=== PATIENT | female | born 1980 | race Caucasian/White ===

== ENCOUNTER 2019-02-18 18:03 | Emergency (ER) | payer SELFPAY ==
[2019-02-18 19:15] VITALS: BP 120/81; PULSE 73; RESP 16; TEMP 36.8; O2SAT 100; BMI 25.6
--- NOTE | 2019-02-18 20:08 | CTR_ITS ---
PROCEDURE INFORMATION: Exam: CT Head Without Contrast Exam date and time: 02/18/2019 8:21 PM Age: 39 years old Clinical indication: Injury or trauma; Injury history: Drywall fell on head TECHNIQUE: Imaging protocol: Computed tomography of the head without contrast. Total DLP: 746.07 mGy-cm Radiation optimization: All CT scans at this facility use at least one of these dose optimization techniques: automated exposure control; mA and/or kV adjustment per patient size (includes targeted exams where dose is matched to clinical indication); or iterative reconstruction. COMPARISON: CT head wo con* [id number] 07/22/2017 6:10 PM FINDINGS: Evaluation of the brain demonstrates no areas of abnormal density. Size of ventricular system appears within normal limits for the patient's stated age. No depressed calvarial fracture is demonstrated. Visualized paranasal sinuses and mastoid air cells demonstrate no significant opacification. CT/CT head wo con* [id number] IMPRESSION: No acute intracranial process is demonstrated. Radiation Dose CTDIVOL = (mGy): DLP = 746.07 (mGy-cm)
--- NOTE | 2019-02-18 20:08 | CTR_ITS ---
PROCEDURE INFORMATION: Exam: CT Cervical Spine Without Contrast Exam date and time: 02/18/2019 8:21 PM Age: 39 years old Clinical indication: Injury or trauma; Injury history: Drywall fell on head; Initial encounter; Blunt trauma TECHNIQUE: Imaging protocol: Computed tomography images of the cervical spine without contrast. Total DLP: 396.78 mGy-cm Radiation optimization: All CT scans at this facility use at least one of these dose optimization techniques: automated exposure control; mA and/or kV adjustment per patient size (includes targeted exams where dose is matched to clinical indication); or iterative reconstruction. COMPARISON: CT Cervical Spine wo* [id number] 10/16/2016 11:06 PM FINDINGS: Alignment of cervical bodies appears within normal limits. Height of cervical bodies appears within normal limits. Straightening of the cervical spine may be due to muscle spasm. There are moderate multilevel degenerative changes in the cervical spine. There appears to be spinal canal narrowing. Further assessment cannot be made of the cervical spinal canal or its contents due to artifacts. No convincing acute fracure is demonstrated when allowing for the degenerative changes. Consider MRI of cervical spine for further assessment if clinically warranted, particularly for further assessment of the spinal canal and its contents, spinal cord, nerve roots, intervertebral disks, ligaments, other spinal soft tissues, bone edema, etc., if patient has no contraindication to MRI. There is approximately 3 mm noncalcified nodule in right lung apex, partly demonstrated on prior study. CT/CT cervical spin wo con* [id number] IMPRESSION: No convincing acute fracture is demonstrated when allowing for moderate degenerative changes as discussed above. There is approximately 3 mm noncalcified nodule in right lung apex, partly demonstrated on prior study. Radiation Dose CTDIVOL = (mGy): DLP = 396.78 (mGy-cm)
--- NOTE | 2019-02-18 21:58 | ED_ITS ---
Entered by Tejal Chapman, acting as scribe for Sandip Rodriguez MD Feb 18, 2019 18:03 HPI - Head Injury General: Chief complaint: Head Injury Stated complaint: dry wall fell on head Time Seen by Provider: 02/18/19 21:58 Source: patient Mode of arrival: ambulatory Limitations: no limitations History of Present Illness: HPI Narrative: 39 y/o female presents to the ED with complaint of headache and neck pain post head injury. Pt states she was at work today when some drywall materials fell on her head. She had a nosebleed immediately afterwards, and denies LOC. Pt reports dizziness and nausea. MD Complaint: head injury and head pain Onset (ago): hour(s) Mechanism of Injury: work related injury Place: work Loss of Consciousness: no Severity: moderate Quality: throbbing Radiation: neck Associated symptoms: Reports nausea and neck pain; Deny vomiting Review of Systems Const: Denies: fever or chills Eyes: Reports: blurry vision ENMT: Denies: throat pain or mouth pain Card: Denies: chest pain Resp: Denies: shortness of breath GI: Reports: nausea; Denies: abdominal pain, vomiting or diarrhea : Denies: difficulty urinating Musc: Reports: neck pain; Denies: back pain or joint pain Skin/Breast: Denies: rash Neuro: Reports: headache and dizziness; Denies: behavioral changes Psych: Denies: depression Endo: Denies: excessive urination Gregory/Lymph: Denies: easy bruising All/Imm: Denies: hives PFSH ED PFSH: Statuses (acute, chronic, etc) shown below reflect problem list status as previously entered and may not be historically accurate Social History Smoking and tobacco status: never smoked Physical Exam Const: COMMON NORMALS: no apparent distress, oriented x3 and healthy appearing HENMT: COMMON NORMALS: normocephalic and external nose normal HEAD & SCALP: normocephalic NOSE: external nose normal Eye: COMMON NORMALS: PERRL PUPIL: Yes PERRL Neck/C-Spine: COMMON NORMALS: no lymphadenopathy CERVICAL SPINE: Yes pain with cervical ROM and Yes cervical spine tenderness Chest: COMMONS NORMALS: inspection of chest normal Resp: COMMON NORMALS: normal respiratory effort, no use of accessory muscles and clear to auscultation bilaterally AUSCULTATION: clear to auscultation bilaterally Cardio: COMMON NORMALS: regular rate and regular rhythm RATE: regular rate RHYTHM: regular rhythm GI: COMMON NORMALS: normal to inspection, nondistended, normoactive bowel sounds, soft to palpation, non-tender and no masses PALPATION: Yes soft Back/Pelvis: THORACIC SPINE/UPPER BACK: Yes normal to inspection Extremity: COMMON NORMALS: normal to inspection, full ROM and normal capillary refill Neuro: COMMON NORMALS: oriented x3 Psych: COMMON NORMALS: mental status grossly normal and cooperative Skin: COMMON NORMALS: no rashes or lesions noted GENERAL SKIN EXAM: no rashes or lesions noted Course Vital Signs: Vital signs: Vital Signs Temperature 98.3 F 02/18/19 19:15 Pulse Rate 73 02/18/19 19:15 Respiratory Rate 16 02/18/19 19:15 Blood Pressure 120/81 02/18/19 19:15 Pulse Oximetry 100 02/18/19 19:15 MDM - Head Injury MDM Narrative: Medical decision making narrative: Patient presents here after a closed head injury. She has some neck pain that is likely muscular. CTs here are negative. Did inform her of the incidental lung finding and informed her she needs a repeat x-ray outpatient. Patient is stable for discharge will prescribe Naprosyn and Robaxin. Imaging Data^: CT Head: Radiologist's impression: Ordering Physician: Sandip Rodriguez MD Date of Service: 02/18/19 Procedure(s): CT head wo con* [id number] Accession Number(s): [id number] cc: Sandip Rodriguez MD PROCEDURE INFORMATION: Exam: CT Head Without Contrast Exam date and time: 02/18/2019 8:21 PM Age: 39 years old Clinical indication: Injury or trauma; Injury history: Drywall fell on head TECHNIQUE: Imaging protocol: Computed tomography of the head without contrast. Total DLP: 746.07 mGy-cm Radiation optimization: All CT scans at this facility use at least one of these dose optimization techniques: automated exposure control; mA and/or kV adjustment per patient size (includes targeted exams where dose is matched to clinical indication); or iterative reconstruction. COMPARISON: CT head wo con* [id number] 07/22/2017 6:10 PM FINDINGS: Evaluation of the brain demonstrates no areas of abnormal density. Size of ventricular system appears within normal limits for the patient's stated age. No depressed calvarial fracture is demonstrated. Visualized paranasal sinuses and mastoid air cells demonstrate no significant opacification. CT/CT head wo con* [id number] IMPRESSION: No acute intracranial process is demonstrated. ct cspine: Radiologist's impression: PROCEDURE INFORMATION: Exam: CT Cervical Spine Without Contrast Exam date and time: 02/18/2019 8:21 PM Age: 39 years old Clinical indication: Injury or trauma; Injury history: Drywall fell on head; Initial encounter; Blunt trauma TECHNIQUE: Imaging protocol: Computed tomography images of the cervical spine without contrast. Total DLP: 396.78 mGy-cm Radiation optimization: All CT scans at this facility use at least one of these dose optimization techniques: automated exposure control; mA and/or kV adjustment per patient size (includes targeted exams where dose is matched to clinical indication); or iterative reconstruction. COMPARISON: CT Cervical Spine wo* [id number] 10/16/2016 11:06 PM FINDINGS: Alignment of cervical bodies appears within normal limits. Height of cervical bodies appears within normal limits. Straightening of the cervical spine may be due to muscle spasm. There are moderate multilevel degenerative changes in the cervical spine. There appears to be spinal canal narrowing. Further assessment cannot be made of the cervical spinal canal or its contents due to artifacts. No convincing acute fracure is demonstrated when allowing for the degenerative changes. Consider MRI of cervical spine for further assessment if clinically warranted, particularly for further assessment of the spinal canal and its contents, spinal cord, nerve roots, intervertebral disks, ligaments, other spinal soft tissues, bone edema, etc., if patient has no contraindication to MRI. There is approximately 3 mm noncalcified nodule in right lung apex, partly demonstrated on prior study. CT/CT cervical spin wo con* [id number] IMPRESSION: No convincing acute fracture is demonstrated when allowing for moderate degenerative changes as discussed above. There is approximately 3 mm noncalcified nodule in right lung apex, partly demonstrated on prior study. Discharge Plan Discharge Patient Disposition: Home, Self-Care Clinical Impression: Closed head injury Qualifiers: Encounter type: initial encounter Qualified Code(s): S09.90XA - Unspecified injury of head, initial encounter Condition: Stable Prescriptions: New Robaxin-750 750 mg tablet 750 mg PO Q6H Qty: 30 RF: 0 EC-Naprosyn 500 mg tablet,delayed release (DR/EC) 500 mg PO BID PRN (Reason: pain) Qty: 20 RF: 0 Discharge Orders: Discharge Order (Routine); Ordered 02/18/19 Ordered By: Sandip Rodriguez Referrals: Alexa Mueller MD [Primary Care Provider] - 4-7 days Discharge Diet: Advance as tolerated Discharge Activity: Resume usual activity Patient Instructions: Concussion/Head Injury - Adult Coding Level of Care Code ED Foreign Collection Clerk for Chg Fwd Exam Problem Focused The documentation recorded by the Ari olivas Ashley, accurately reflects the service I personally performed and the decisions made by Michael cade Korby, MD Feb 18, 2019 18:03
--- NOTE | 2019-02-18 22:11 | PC.NURSE ---
refused pain med naproxen reports drywall falling from ceiling at work. fell directly ontop of head around 1100 today took some tylenol but didnt help. now presents with headache radiating down neck and rt ear.
[2019-02-18 22:17] VITALS: BP 114/79; PULSE 70; RESP 20; TEMP 36.6; O2SAT 99
== END 2019-02-18 22:18 | disposition home or self-care (01) ==
PROVIDERS: Emergency Provider Emergency Medicine; Family Provider Family Medicine; PCP Family Medicine
DX: S09.8XXA Other specified injuries of head, initial encounter (principal); W20.8XXA Other cause of strike by thrown, projected or falling object, initial encounter; Y99.0 Civilian activity done for income or pay
CPT/HCPCS: 70450; 72125; 99281

== ENCOUNTER 2019-03-06 11:23 | Outpatient (CLI) | payer SELFPAY ==
--- NOTE | 2019-03-06 11:26 | MR_ITS ---
WS: [id number] MRI CERVICAL SPINE HISTORY: CHRONIC NECK PAIN;UNSPEC INJURY OF HEAD COMPARISON: CT cervical spine 02/18/2019 Mild straightening and slight reversal normal cervical alignment centered at C4-5. No marrow edema. Signal within the cervical cord is normal. Visualized posterior fossa is unremarkable. Craniocervical junction, C1 and C2 relationship, odontoid process and soft tissues are normal. C2-C3: Normal. C3-C4: Normal. C4-C5: Small central disc protrusion. There are also small bilateral foraminal osteophytes. Osteophyt es extend posteriorly towards the LEFT foramen by 5 mm. There is mild bilateral foraminal narrowing p redominantly due to osteophyte disease. C5-C6: Bilateral, paracentral disc osteophyte complexes. RIGHT disc osteophyte complex is slightly gr eater than the LEFT. Effacement of CSF and mild disc osteophyte contact on the RIGHT lateral cord. Di sc osteophyte disease is resulting in mild central and bilateral foraminal stenosis. Slightly greater stenosis on the RIGHT. C6-C7: Normal. C7-T1: Normal. Paraspinal soft tissue are normal. MR/MR cervical spin wo con* [id number] IMPRESSION: 1. No cervical spine fracture. 2. Disc osteophyte complexes at C4-5 and C5-6. 3. Bilateral, paracentral disc osteophyte complexes at C5-6. The RIGHT disc os teophyte causing complete effacement of CSF with mild cord contact. 4. Mild central and bilateral foraminal stenosis at C5-6. 5. Mild foraminal stenosis at C4-5 due to disc osteophyte disease.
== END 2019-03-06 11:24 | disposition home or self-care (01) ==
LOC: RADSHAW 11:23
PROVIDERS: Family Provider Family Medicine; PCP Family Medicine; Visit Provider Family Medicine
DX: M54.2 Cervicalgia (principal); S09.90XD Unspecified injury of head, subsequent encounter; X58.XXXD Exposure to other specified factors, subsequent encounter; M25.78 Osteophyte, vertebrae; M48.02 Spinal stenosis, cervical region
CPT/HCPCS: 72141

== ENCOUNTER 2019-03-06 12:43 | Outpatient (CLI) | payer SELFPAY ==
--- NOTE | 2019-03-06 13:05 | CT_ITS ---
WS: [id number] CT CHEST TECHNIQUE: Contrast enhanced CT of the chest with coronal and sagittal reformatted images. CLINICAL INFORMATION: MULTIPLE NODULES OF LUNG COMPARISON: None. DLP: 527.[address] scans at [facility] use at least one of these dose optimization techniques: automat ed exposure control; mA and/or kV adjustment per patient size (includes targeted exams where dose is matched to clinical indication); or iterative reconstruction. FINDINGS: Both lungs are well aerated. No acute pulmonary infiltrates. No consolidation or pleural fluid. Sever al small hazy groundglass noncalcified nodules in the right upper and right lower lobe laterally the largest in the right upper lobe measuring 5 mm and lower lobe measuring 4 mm. These are nonspecific a nd may be inflammatory. Recommend 3-6 month follow-up. 2 or 3 additional hazy similar appearing left-sided nodules in the left upper lobe and left lower lob e. Small amount of subpleural nodularity left lower lobe. Mild chronic emphysematous changes. Slight fibrosis in the lung apices. Thyroid gland is normal. No m ediastinal or hilar lymphadenopathy. Proximal pulmonary arteries appear normal. Normal caliber thorac ic aorta. No axillary lymphadenopathy. Adrenal glands are normal. CT/CT chest w con* [id number] IMPRESSION: 1. Mild chronic emphysematous changes. No acute pulmonary infiltrates. 2. A few subcentimeter hazy noncalcified nodules more prominent in the right u pper lobe and right lower lobe described above. These may be inflammatory. Reji mmend 6 month follow-up. 3. No mediastinal or hilar lymphadenopathy. 4. No other significant findings.
[2019-03-06] MEDS: iohexol 300 mg/mL 100 mL Btl IV (13:43)
== END 2019-03-06 12:44 | disposition home or self-care (01) ==
LOC: RADWPI 12:47
PROVIDERS: Family Provider Family Medicine; PCP Family Medicine; Visit Provider Family Medicine
DX: J43.9 Emphysema, unspecified (principal); R91.8 Other nonspecific abnormal finding of lung field
CPT/HCPCS: 71260; Q9967

== ENCOUNTER 2019-03-31 14:45 | Outpatient (CLI) | payer SELFPAY ==
[2019-03-31 15:12] LABS: Basophils % 0.7 %; Eosinophils # 0.4 10^3/uL (0.0-0.8); Eosinophils % 6.8 %; Hematocrit 38.9 % (37.0-47.0); Hemoglobin 13.1 g/dL (11.5-15.3); Lymphocytes # 1.5 10^3/uL (0.8-4.8); Lymphocytes % 24.1 %; Mean Corpuscular HGB Conc 33.7 g/dL (30.0-36.0); Mean Corpuscular Hemoglobin 30.8 pg (28.0-34.0); Mean Corpuscular Volume 91.3 fL (81-99); Mean Platelet Volume 9.5 fL (7.4-10.4); Monocytes # 0.5 10^3/uL (0.2-0.9); Monocytes % 7.4 %; Neutrophils # 3.7 10^3/uL (1.8-7.7); Neutrophils % 60.7 %; Nucleated Red Blood Cells % 0 %; Platelet Count 358 10^3/cmm (130-400); Red Blood Count 4.26 10^6/uL (4.1-5.3); Red Cell Distribution Width 11.3 % (12.1-15.1); White Blood Count 6.1 10^3/uL (4.0-10.0)
[2019-03-31 15:52] LABS: 25 Hydroxy Vitamin D 51 ng/mL (30-100)
[2019-03-31 18:58] LABS: Calcium 9.9 mg/dL (8.5-10.5); Parathyroid Hormone 35.3 pg/mL (15-65)
[2019-04-01 11:18] LABS: Angiotensin Converting Enzyme 35 U/L (9-67)
[2019-04-02 14:11] LABS: Quantiferon Mitogen 7.77 IU/mL; Quantiferon Nil 0.03 IU/mL; Quantiferon Plus TB1 0.01 IU/mL; Quantiferon Plus TB2 0.02 IU/mL; Quantiferon TB Gold NEGATIVE (NEGATIVE)
[2019-04-04 18:16] LABS: Vit D 1,25 (Oh)2, Total 61 pg/mL (18-72); Vit D2 1,25 (Oh)2 <8 pg/mL; Vit D3 1,25 (Oh)2 61 pg/mL
== END 2019-03-31 14:46 | disposition home or self-care (01) ==
LOC: LAB 14:48
PROVIDERS: Family Provider Family Medicine; PCP Family Medicine; Visit Provider Internal Medicine Critical Care Medicine
DX: Z01.812 Encounter for preprocedural laboratory examination (principal); D86.9 Sarcoidosis, unspecified; R59.0 Localized enlarged lymph nodes
CPT/HCPCS: 82164; 82306; 82310; 82652; 83970; 85025; 86480

== ENCOUNTER 2019-04-10 05:54 | Day surgery (SDC) | payer SELFPAY ==
[2019-04-10] VITALS (8 sets, daily range): BP systolic 105–114; BP diastolic 55–76; PULSE 79–119; RESP 16–22; TEMP 36.6–37.5; O2SAT 96–99
--- NOTE | 2019-04-10 06:25 | ANES.PREANE2 ---
Pre-Anesthetic Assessment Pre-Anesthetic Assessment: Height/Weight: Height 1.65 m Weight 54.431 kg Temp Pulse Resp BP Pulse Ox 98.1 F 79 18 109/71 99 04/10/19 06:06 04/10/19 06:06 04/10/19 06:06 04/10/19 06:06 04/10/19 06:06 Preop Diagnosis: Sarcoidosis Proposed Procedure: Operation Date: 04/10/19 07:00 Proposed Procedures p Ebus 80076 56848 R91.1(Not Applicable) - Biplab MD Az Last intake: Intake Last Liquid Date 04/09/19 Last Liquid Time 21:30 Last Solid Date 04/09/19 Last Solid Time 20:30 Exam: Pre-Anes Outpt Exam: alert, oriented x 3, clear to auscultation bilaterally and regular rate & rhythm Airway: Submandibular: WNL Cervical ROM: WNL MP: 1 Additional comments: malocculsion Pulmonary: Comments: pulmonary nodule Anesthetic Plan: ASA status: 2 Anesthesia: General PFS Anesthesia PFSH: Social History Smoking and tobacco status: never smoked Alcohol intake: never Lives independently: Yes 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: employed Current occupational exposures/hazards: No History of recent travel: No Current gender identity: Female Data Anesthesia Cardiac Studies: No Data to Display
[2019-04-10] MEDS: sodium chloride 0.9% 1,000 ML 30 ML IV (06:34)
--- NOTE | 2019-04-10 06:48 | W.PM.OPSUD ---
Surgery/Procedure H&P Update DATE OF PROCEDURE: April 10, 2019 DATE H&P PERFORMED: 03/31/19 H&P UPDATE INFORMATION: I have reviewed H&P completed within last 30 days, I have examined patient prior to procedure and No changes to prior documentation CHANGES TO PREVIOUS DOCUMENTATION: There is no change in her clinical status since she was last seen in the office. PREOP DIAGNOSIS: Sarcoidosis PRIMARY INDICATION FOR PROCEDURE: The patient is here for evaluation of pulmonary nodule with mediastinal hilar lymphadenopathy. PLANNED PROCEDURE: Bronchoscopy with airway inspection, possible endobronchial and transbronchial biopsies, endobronchial ultrasound-guided transbronchial needle aspiration of lymph nodes. Operation Date: 04/10/19 07:00 Proposed Procedures p Ebus [id number] R91.1(Not Applicable) - Yadiel Bernardo MD
[2019-04-10 07:13] LABS: Total Volume Urine 1450 ml
[2019-04-10 07:14] LABS: Calcium 24 Hour Urine 251 mg/24hr (100-300); Urine Calcium Result 17.3 mg/dL
[2019-04-10] MEDS: lidocaine 1% INJ 20 mL XX (07:20)
--- NOTE | 2019-04-10 08:15 | P.OP_ITS ---
Operative Report Date of procedure: April 10, 2019 Pre-op Diagnosis: Sarcoidosis Brief History: This is a 39-year-old female who presents to the office with bilateral small pulmonary nodule in the perilymphatic distribution as well as medicine hilar lymphadenopathy. The patient is here to undergo bronchoscopic evaluation and endobronchial ultrasound-guided transbronchial needle aspiration of lymph nodes. Procedure: Name of the procedure: Bronchoscopy with inspection of the airway, bronchoalveolar lavage, endobronchial biopsies, endobronchial ultrasound-guided transbronchial needle aspiration of lymph nodes and control of bleeding. Indication: Pulmonary nodule in perilymphatic distribution and hilar and mediastinal lymphadenopathy. Anesthesia: General anesthesia. Local anesthesia: The margaret in the right and left mainstem bronchi were anesthetized with 1% lidocaine, 3 mL. Description of the procedure: The procedure was explained to the patient and the consent was obtained. The patient was brought to the OR. The patient underwent endotracheal intubation for general anesthesia. Following induction of general anesthesia, the bronchoscope was advanced through the ET tube. The lower trachea appeared to be mildly erythematous with prominent blood vessels, no endotracheal lesion was seen. The margaret was sharp. The margaret, the right and left mainstem bronchi are anesthetized with 1% lidocaine. In a systematic manner bilateral bronchial tree was then examined. The bronchoscope was advanced into the left mainstem bronchus. There was no significant erythema or mucus. But areas of cobblestoning was noted on bilateral airways. The left upper lobe, lingula and left lower lobe bronchi were examined up to the third subsegmental level and no abnormalities were identified. There is no e ndobronchial lesion, active bleeding or mucous plug. The bronchoscope was then introduced into the right mainstem bronchus. The right upper lobe, right middle lobe and right lower lobe bronchi were examined up to the third subsegmental level and no abnormalities were identified. There was mild airway erythema throughout the lung. Bronchoalveolar lavage was performed from the medial segment of the right middle lobe. 60 mL of saline was instilled, fluid return was 15 mL. The fluid was cloudy. Endobronchial biopsies were performed from the right mainstem bronchus from an area of cobblestoning. 3 specimens were obtained. The endobronchial ultrasound was introduced through the ET tube. Mediastinal and hilar lymphadenopathy was identified with the ultrasound. The lymph nodes showed distinct cortex and Medela. Transbronchial needle aspiration was performed from 4R, 7, 10 R lymph nodes. The bronchoscope was then reintroduced to check for bleeding. No significant active bleeding was noted. Samples: 1. Bronchoalveolar lavage specimen was sent for cell count and differential, CD4 CD8 ratio, Gram stain and culture, fungal stain and culture, AFB stain and culture. 2. The endobronchial biopsies are sent for histopathology. 3. The transbronchial needle aspiration of the aforementioned lymph node groups were sent for cytology. Complications: There was no immediate complications. The patient was extubated and brought to the PACU in stable condition.
[2019-04-10] MEDS: ondansetron 2 mg/ML SDV 2 mL 4 MG IVP (08:31)
--- NOTE | 2019-04-10 09:20 | SUR.OPER ---
balloon removed intact.
[2019-04-10 18:12] LABS: Bronch Source Right Middle Lobe
[2019-04-10 22:05] LABS: Apprearance, Bronch Wash Hazy (CLEAR)
[2019-04-10 22:06] LABS: Color, Bronc Wash Colorless
[2019-04-10 22:11] LABS: PATH Referral Yes; Total Cells Counted Bronch 18
[2019-04-14 13:32] LABS: Miscellaneous Test See Scanned Lab Rpt
== END 2019-04-10 09:26 ==
PROVIDERS: Family Provider Family Medicine; PCP Family Medicine; Visit Provider Internal Medicine Critical Care Medicine
PROC: BB4BZZZ Ultrasonography of Pleura (ICD-10-PCS; CPT 31624; principal; 2019-04-10 07:00)
DX: D86.9 Sarcoidosis, unspecified (principal)
CPT/HCPCS: 31624; 31625; 31645; 12345; 80500; 82340; 86355; 86357; 86359; 86360; 87015; 87070; 87102; 87116; 87205; 87206; 87801; 88112; 88305; 89050; J1100; J2001; J2405; J2710; J3010; J3490; J7030

== ENCOUNTER 2019-04-13 14:11 | Outpatient (CLI) | payer SELFPAY ==
--- NOTE | 2019-04-13 14:17 | XR_ITS ---
WS: [id number] LATERAL CERVICAL SPINE: 3 view. Lateral radiographs are performed in upright neutral, flexion and extension to the patient's toleranc e. HISTORY: Neck pain COMPARISON: 07/22/2017 Straightening of the normal cervical lordosis. Disc spaces and vertebral body heights are maintained. With flexion and extension no instability. XR/XR cervical spine fl/ex [id number] IMPRESSION: Straightening of the normal cervical lordosis. No instability.
== END 2019-04-13 14:12 | disposition home or self-care (01) ==
LOC: RADWPI 14:13
PROVIDERS: Family Provider Family Medicine; PCP Family Medicine; Visit Provider Licensed Practical Nurse
DX: M50.020 Cervical disc disorder with myelopathy, mid-cervical region, unspecified level (principal); M54.2 Cervicalgia
CPT/HCPCS: 72040

== ENCOUNTER → 2019-04-16 10:30 | Outpatient (BNVA) | payer SELFPAY | PROVIDERS: Family Provider Family Medicine; PCP Family Medicine; Referring Provider Licensed Practical Nurse; Visit Provider Anesthesiology Pain Medicine | DX: M50.00 Cervical disc disorder with myelopathy, unspecified cervical region (principal); Z79.891 Long term (current) use of opiate analgesic | CPT/HCPCS: 99203; 99999 ==

== ENCOUNTER → 2019-04-21 15:17 | Outpatient (BNVA) | payer SELFPAY | PROVIDERS: Family Provider Family Medicine; PCP Family Medicine; Visit Provider Otolaryngology | DX: H92.11 Otorrhea, right ear (principal); J33.9 Nasal polyp, unspecified | CPT/HCPCS: 92511; 99214 ==

== ENCOUNTER 2019-04-27 08:53 | Outpatient (CLI) | payer SELFPAY ==
--- NOTE | 2019-04-27 08:45 | CT_ITS ---
WS: [id number] CT TEMPORAL BONES TECHNIQUE: Noncontrast CT of the temporal bones with coronal and sagittal reformatted images. CLINICAL INFORMATION: Otorrhea, right ear COMPARISON: Multiple prior head CTs dating back to 2011. DLP: 631.[address] scans at [facility] use at least one of these dose optimization techniques: automat ed exposure control; mA and/or kV adjustment per patient size (includes targeted exams where dose is matched to clinical indication); or iterative reconstruction. FINDINGS: Partially visualized paranasal sinuses appear well aerated. RIGHT: Mastoid air cells are well aerated. Prominent aditus ad antrum. Slight Cerumen external auditory taiwo l. Ossicles are normal in appearance. Middle ear is well aerated. Thickening of the tympanic membrane . Normal tegmen tympani. Semicircular canals and cochlea are normal in appearance. Prussak's space is normal. Normal inner ear structures. Normal vestibular aqueduct. Facial nerve recess is normal. LEFT: Mastoid air cells well aerated. Prominent cerumen in the external auditory canal. Normal tympanic mem brane. Prominent aditus ad antrum with prior evidence of partial canal wall up mastoidectomy/partial mastoid resection. Ossicles are normal in appearance. Middle ear is well aerated. Normal tegmen tympani. Semicircular c anals and cochlea are normal in appearance. Prussak's space is normal. Normal inner ear structures. N ormal vestibular aqueduct. Facial nerve recess is normal.. CT/CT temporal bone wo con* [id number] IMPRESSION: 1. Mastoid air cells well aerated bilaterally. 2. Prominent aditus ad antrum bilaterally symmetric in appearance with evidenc e of prior partial left canal wall up mastoidectomy. If no history of surgery, this could be due to prior history of coalescent mastoiditis. 3. Mild thickening of the right tympanic membrane pedicle. Middle ears are wel l aerated bilaterally. 4. Prominent cerumen in the left external auditory canal.
== END 2019-04-27 08:54 | disposition home or self-care (01) ==
LOC: RADWPI 08:57
PROVIDERS: Family Provider Family Medicine; PCP Family Medicine; Visit Provider Otolaryngology
DX: H92.11 Otorrhea, right ear (principal); H61.22 Impacted cerumen, left ear
CPT/HCPCS: 70480

== ENCOUNTER 2019-04-28 14:13 | Outpatient (RCR) | payer SELFPAY | END 2019-05-12 23:59 | disposition home or self-care (01) | LOC: SPT 14:13 | PROVIDERS: Family Provider Family Medicine; PCP Family Medicine; Referring Provider Licensed Practical Nurse; Visit Provider Licensed Practical Nurse | DX: M50.020 Cervical disc disorder with myelopathy, mid-cervical region, unspecified level (principal) | CPT/HCPCS: 97110; 97162 ==

== ENCOUNTER → 2019-05-14 10:21 | Outpatient (BNVA) | payer SELFPAY | PROVIDERS: Family Provider Family Medicine; PCP Family Medicine; Visit Provider Anesthesiology Pain Medicine | DX: M50.00 Cervical disc disorder with myelopathy, unspecified cervical region (principal) | CPT/HCPCS: 99213 ==

== ENCOUNTER 2019-06-18 10:33 | Outpatient (CLI) | payer SELFPAY ==
--- NOTE | 2019-06-18 10:38 | MM_ITS ---
WS: [id number] BILATERAL SCREENING DIGITAL MAMMOGRAM WITH CAD HISTORY: Screening exam. COMPARISON: 02/18/2017 and 01/11/2016 Bilateral CC and MLO views submitted. Computer aided detection analyzed. Breast composition: The breasts are extremely dense, which lowers the sensitivity of mammography. No suspicious masses, microcalcifications or architectural distortion. Clusters of calcifications bilate rally are stable. Suspect some of these are probably milk of calcium as there indistinct and hazy on the craniocaudad and layering on the lateral projection. MM/[place] [id number] IMPRESSION: BI-RADS: 2-Benign FOLLOW UP: 1 Year Follow-up
== END 2019-06-18 10:34 | disposition home or self-care (01) ==
PROVIDERS: Family Provider Family Medicine; PCP Family Medicine; Visit Provider Family Medicine
DX: Z12.31 Encounter for screening mammogram for malignant neoplasm of breast (principal)
CPT/HCPCS: 77067

== ENCOUNTER 2020-04-28 10:01 | Emergency (ER) | payer SELFPAY ==
[2020-04-28 10:09] VITALS: BP 111/65; PULSE 80; RESP 17; O2SAT 99; BMI 21.2
[2020-04-28 10:17] VITALS: BP 111/81; PULSE 76; RESP 20; O2SAT 97
--- NOTE | 2020-04-28 10:48 | ECG_ITS ---
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 Measurements Intervals [place] Rate: 80 P: 61 WA: 154 QRS: 98 QRSD: 93 T: 55 QT: 357 QTc: 414 Interpretive Statements SINUS RHYTHM BORDERLINE RIGHT AXIS DEVIATION [QRS AXIS > 90] INCOMPLETE RIGHT BUNDLE BRANCH BLOCK [90+ ms QRS DURATION, TERMINAL R IN V1/V2, 40+ ms S IN I/aVL/V4/V5/V6] WARNING: DATA QUALITY MAY AFFECT INTERPRETATION Compared to ECG 10/08/2017 14:04:21 No significant changes Electronically Signed On 04-29-2020 22:55:51 CDT by Radha Flynn M.D. [email or web address]
--- NOTE | 2020-04-28 10:48 | XR_ITS ---
WS: [id number] XR chest 1V portable [id number] REASON FOR EXAM: Chest pain FINDINGS: The chest is unchanged compared to previous examination 03/08/2017. The heart and mediastinum are within normal limits. Changes of calcified granulomatous disease in both hemithoraces. No active pulmonary parenchymal or p leural disease. Accentuation of lower lung field markings is likely due to mild pectus deformity demo nstrated on previous PA and lateral chest. No significant abnormality of the bony thorax. XR/XR chest 1V portable [id number] IMPRESSION: No acute chest abnormality.
--- NOTE | 2020-04-28 12:08 | W.ED.CHESTPA ---
HPI - Chest Pain General: Chief Complaint: Chest Pain Stated Complaint: CHEST PAIN/NUMBNESS IN L ARM Time Seen by Provider: 04/28/20 10:41 Source: patient Mode of arrival: ambulatory Limitations: no limitations History of Present Illness: MD complaint: chest pain Pain location: left chest Pain radiation: left arm and left shoulder Quality: aching Relieving factors: nothing Exacerbating factors: palpation and movement Associated symptoms: Deny abdominal pain, dyspnea, fever(s), nausea, palpitations or syncope Review of Systems General: Reports: 10 or more systems reviewed and unremarkable except in HPI and below Const: Denies: fever(s) or chills Eyes: Denies: change in vision or blurry vision ENMT: Denies: throat pain, odynophagia or sinus pain Card: Reports: chest pain; Denies: palpitations, irregular heart rhythm, swelling of feet/ankles, lightheadedness, syncope, dyspnea on exertion or orthopnea Resp: Denies: dyspnea, productive cough, non-productive cough, wheezing, stridor, pain on inspiration or chest congestion GI: Denies: abdominal pain, nausea or vomiting : Denies: difficulty voiding or dysuria Musc: Reports: extremity pain, joint pain, joint stiffness, limited range of motion and muscle cramps Skin/Breast: Denies: rash, pruritus or erythema Neuro: Reports: numbness in extremities; Denies: headache(s) or weakness in extremities Psych: Denies: anxiety, depression or mood swings Gregory/Lymph: Denies: easy bruising PFSH ED PFSH: Medical History Cervical disc disorder with myelopathy of mid-cervical region Cervical stenosis of spinal canal Lung nodule Nasal polyp Otorrhea, right ear Ovarian cyst Surgical History History of appendectomy History of hysterectomy Family History Mother Heart disease Diabetes Breast cancer Father Stroke Hypertension Hypercholesteremia Diabetes Asthma Social History Smoking and tobacco status: never smoked Alcohol intake: never Household members: spouse and children Marital status: 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: employed Current occupation: [employer] History of recent travel: No Physical Exam Const: COMMON NORMALS: no acute distress, average body habitus, patient oriented x3, no limitations, healthy appearing, alert and well nourished GENERAL APPEARANCE: comfortable and well kempt; not in distress and not ill appearing HENMT: COMMON NORMALS: normocephalic and atraumatic HEAD & SCALP: normocephalic and atraumatic FACE & SINUS: normal facial exam and face symmetric Eye: COMMON NORMALS: Equal, round and reactive pupils present, EOMs intact bilaterally, conjunctivae normal and no scleral icterus CONJUNCTIVA: Yes conjunctivae normal PUPIL: Yes Equal, round and reactive pupils present Neck/C-Spine: COMMON NORMALS: full ROM, no lymphadenopathy, supple and no JVD Lymph: LYMPHATIC: no lymphadenopathy noted Chest: BREAST/AXILLA PALPATION: Yes abnormal palpation of the axilla and Yes abnormal palpation of the breast (Pectoralis major tendon) left upper outer Breast palpation abnormal details: tenderness, mass, induration, glandular prominence, fibrous tissue prominence, fibrocystic changes and other (Pain on palpation of tendon) Chest images (female): 1. Tender to palpation Resp: COMMON NORMALS: normal respiratory effort, No use of accessory muscles and clear to auscultation bilaterally EFFORT & INSPECTION: Yes able to speak in complete sentences AUSCULTATION: clear to auscultation bilaterally Cardio: COMMON NORMALS: no JVD, regular rate, regular rhythm, S1 normal heart sound present and S2 normal heart sound present RATE: regular rate RHYTHM: regular rhythm HEART SOUNDS: S1 normal heart sound present and S2 normal heart sound present GI: COMMON NORMALS: Normal to inspection, nondistended, normoactive bowel sounds present, Soft to palpation and non-tender PALPATION: Yes Soft to palpation Extremity: GENERAL: Yes normal exam except as noted Neuro: COMMON NORMALS: patient oriented x3 Psych: COMMON NORMALS: mental status grossly normal and Normal thought process present APPEARANCE: Yes well kempt THOUGHT PROCESS: Normal thought process present Skin: COMMON NORMALS: no rashes or lesions noted, no wounds, turgor normal, no jaundice and no petechiae GENERAL SKIN EXAM: no rashes or lesions noted and turgor normal Course Vital Signs: Vital signs: Vital Signs Pulse Rate 76 04/28/20 10:17 Respiratory Rate 20 H 04/28/20 10:17 Blood Pressure 111/81 04/28/20 10:17 Pulse Oximetry 97 04/28/20 10:17 MDM - Chest Pain MDM Narrative: Medical decision making narrative: 40-year-old female with left chest wall pain since this morning. Last night she noticed some upper shoulder and neck pain. Her pain is worse with deep breathing, palpation, and adduction of her left shoulder. No palpitations, no shortness of breath, she has some pain radiating down the upper part of her left arm with tingling. No weakness. Denies any recent injury or strenuous activity, although she says that she has been deep cleaning her house. No history of heart or lung problems. No recent cough or congestion. No fever. Chest x-ray does not show any acute infiltrates, pneumothorax, effusions, or consolidations. EKG; normal sinus rhythm, rate 80, SC 154, QRS 93, QT 393. Borderline right axis deviation, no ST segment elevation or depression. No ectopy. The patient's pain is easily recreated with movement and palpation of the pectoralis major tendon on the left. She is not having any respiratory symptoms, no tachycardia, dyspnea, or hypoxia to raise suspicion for PE. The characteristics of her pain are not consistent with cardiac etiology. No further work-up needed at this time. I will recommend warm compresses, massage, stretching, and follow-up with PCP in the next 2 to 3 days to review her preventative care and make sure she is up-to-date with her mammogram. Differential Diagnosis: Cardiac arrest differential diagnosis: Likely acute massive pulmonary embolism, acute respiratory failure and acute myocardial infarction Medical Records: Attestation: I reviewed the patient's medical records. Discharge Plan Discharge Patient Disposition: Home Clinical Impression: Anterior chest wall pain Pectoralis major tendinitis Qualifiers: Laterality: left Qualified Code(s): M75.82 - Other shoulder lesions, left shoulder Condition: Stable Prescriptions: No Action No Known Home Medications RF: 0 Discharge Orders: Discharge ED (Routine); Ordered 04/28/20 Ordered By: Maribel Black Referrals: Elizabeth Lucero FNP [Primary Care Provider] - Discharge Diet: Advance as tolerated Discharge Activity: Resume usual activity Patient Instructions: Chest Pain - Chest Wall Activity Restrictions/Additional Instructions: Call to schedule follow-up appointment with your primary care doctor in the next 2 to 3 days. Apply heat, massage, do frequent stretches and therapeutic exercises. You can take [id number] Tylenol or ibuprofen for pain. Return immediately to the ER if you develop worsening pain, difficulty breathing, fever, worsening weakness or numbness in your left arm, or any other concerning changes. Coding Level of Care Code ED Music Library Assistant for Fredrick Gonsalez
[2020-04-28 12:17] VITALS: BP 112/62; PULSE 82; RESP 17; O2SAT 94
== END 2020-04-28 12:18 | disposition home or self-care (01) ==
PROVIDERS: Emergency Provider Family Medicine; PCP Nurse Practitioner Family
DX: R07.89 Other chest pain (principal); M75.82 Other shoulder lesions, left shoulder
CPT/HCPCS: 71045; 93005; 99283

== ENCOUNTER → 2020-09-19 14:12 | Outpatient (BNVA) | payer SELFPAY | PROVIDERS: PCP Nurse Practitioner Family; Visit Provider Specialist | DX: M50.020 Cervical disc disorder with myelopathy, mid-cervical region, unspecified level (principal); M48.02 Spinal stenosis, cervical region; R20.2 Paresthesia of skin; Z87.891 Personal history of nicotine dependence | CPT/HCPCS: 99204 ==

== ENCOUNTER → 2020-09-26 14:57 | Outpatient (BNVA) | payer SELFPAY | PROVIDERS: PCP Nurse Practitioner Family; Visit Provider Specialist | DX: M48.02 Spinal stenosis, cervical region (principal); R20.0 Anesthesia of skin; R20.2 Paresthesia of skin; Z87.891 Personal history of nicotine dependence | CPT/HCPCS: 95913 ==

== ENCOUNTER 2020-09-30 14:50 | Outpatient (CLI) | payer SELFPAY ==
--- NOTE | 2020-09-30 16:45 | MR_ITS ---
WS: [id number] MRI CERVICAL SPINE NONCONTRAST TECHNIQUE: Sagittal T1, T2 and STIR imaging. Axial T2, gradient, and fiesta imaging. CLINICAL INFORMATION: M50.020 - Cervical disc disorder with myelopathy, mid-cer... COMPARISON: MRI March 06, 2019 FINDINGS: Straightening of the normal cervical lordosis. Disc bulging worse at C4-C5 and C5-C6. Cord signal is normal. C2-C3: Normal. C3-C4: No significant disc bulging. Mild facet arthropathy. Spinal canal and foramen are patent. C4-C5: Disc osteophyte complex with endplate ridging. Central disc osteophyte protrusion with slight indentation on cervical cord. Mild central canal stenosis. Mild to moderate bilateral bony foraminal narrowing left greater than right. Mild facet arthropathy. C5-C6: Disc osteophyte complex with endplate ridging. Right pericentral disc osteophyte protrusion wi th indentation on cervical cord. Mild to moderate central canal stenosis. Moderate left greater than right bony foraminal narrowing. C6-C7: Mild disc bulging and osteophytic ridging. Disc bulging eccentric to the left with mild to mod erate left foraminal narrowing. Right foramen is patent. Spinal canal is patent. C7-T1: Normal. Visualized brain stem structures: Normal. Prevertebral soft tissues: Normal. MR/MR cervical spin wo con* [id number] IMPRESSION: Number significant changes compared to March 06, 2019 1. Straightening of the normal cervical lordosis. Cord signal is normal. 2. Disc osteophyte protrusions C4-C5 and C5-C6 with indentation on the ventral cervical cord. 3. Mild/moderate central canal stenosis worse at C5-C6 with indentation on the right ventral cervical cord. This is unchanged from previous. 4. Moderate bony foraminal narrowing C5-C6 left greater than right. 5. Mild to moderate bony foraminal narrowing worse at left C4-C5, and left C6- C7.
== END 2020-09-30 14:51 | disposition home or self-care (01) ==
LOC: RADSHAW 14:53
PROVIDERS: PCP Nurse Practitioner Family; Visit Provider Specialist
DX: M50.020 Cervical disc disorder with myelopathy, mid-cervical region, unspecified level (principal); M48.02 Spinal stenosis, cervical region; M25.78 Osteophyte, vertebrae
CPT/HCPCS: 72141

== ENCOUNTER → 2021-05-25 09:08 | Outpatient (BNVA) | payer SELFPAY | PROVIDERS: PCP Nurse Practitioner Family; Visit Provider Family Medicine | DX: S61.411A Laceration without foreign body of right hand, initial encounter (principal); R20.8 Other disturbances of skin sensation; L03.011 Cellulitis of right finger; X58.XXXA Exposure to other specified factors, initial encounter | CPT/HCPCS: 73120 ==

== ENCOUNTER → 2021-10-19 18:46 | Outpatient (BNVA) | payer SELFPAY | PROVIDERS: PCP Nurse Practitioner Family; Visit Provider Emergency Medicine | DX: J02.9 Acute pharyngitis, unspecified (principal) | CPT/HCPCS: 87071; 87880 ==

== ENCOUNTER → 2021-10-20 10:43 | Outpatient (BNVA) | payer SELFPAY | PROVIDERS: PCP Nurse Practitioner Family; Visit Provider Emergency Medicine | DX: J02.9 Acute pharyngitis, unspecified (principal) | CPT/HCPCS: 87071 ==

== ENCOUNTER 2021-11-19 08:43 | Emergency (ER) | payer BC, SELFPAY ==
[2021-11-19 08:52] VITALS: BP 116/57; PULSE 90; RESP 17; O2SAT 97; BMI 23.8
--- NOTE | 2021-11-19 08:59 | ECG_ITS ---
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 Measurements Intervals Corinne Rate: 74 P: 51 CO: 158 QRS: 94 QRSD: 102 T: 59 QT: 394 QTc: 439 Interpretive Statements SINUS RHYTHM BORDERLINE RIGHT AXIS DEVIATION [QRS AXIS > 90] INCOMPLETE RIGHT BUNDLE BRANCH BLOCK [90+ ms QRS DURATION, TERMINAL R IN V1/V2, 40+ ms S IN I/aVL/V4/V5/V6] Compared to ECG 04/28/2020 10:13:04 No significant changes Electronically Signed On 11-19-2021 18:19:25 CDT by Radha Flynn M.D. [id number]
--- NOTE | 2021-11-19 09:11 | ED_ITS ---
HPI - Chest Pain General: Chief Complaint: Chest Pain Stated Complaint: Chest pains on and off, N/D Time Seen by Provider: 11/19/21 08:59 History of Present Illness: 41-year-old female presenting today with left- sided chest pain. Patient notes pain is been present for almost a week. Patient states worsening of pain last 24 hours. Located in the left chest. Worse with movement. Worse with laying flat. No significant difficulty breathing. No pain or swelling in her lower extremities. No history of blood clots. No recent travel recent surgeries. Takes minimal medications. No significant coronary artery disease history. 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 Review of Systems General: Reports: 10 or more systems reviewed and unremarkable except in HPI and below PFSH ED PFSH: Medical History (Updated 11/19/21 @ 10:50 by Srini Gomez DO) Cervical disc disorder with myelopathy of mid-cervical region Cervical stenosis of spinal canal Lung nodule Nasal polyp Otorrhea, right ear Ovarian cyst Surgical History History of appendectomy History of hysterectomy Family History Mother Heart disease Diabetes Breast cancer Father Stroke Hypertension Hypercholesteremia Diabetes Asthma Social History Smoking and tobacco status: never smoked Alcohol intake: never Household members: spouse and children Marital status: 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: employed Current occupation: [employer] History of recent travel: No Physical Exam Const: COMMON NORMALS: no acute distress, patient oriented x3 and alert GENERAL APPEARANCE: cooperative ORIENTATION/CONSCIOUSNESS: Yes awake, Yes oriented to person, Yes oriented to place and Yes oriented to time HENMT: COMMON NORMALS: normocephalic, atraumatic, external ears normal, Normal external nose present and moist oral mucous membranes HEAD & SCALP: normal to inspection, normocephalic and atraumatic NOSE: Normal external nose present GENERAL EAR: hearing grossly impaired EXTERNAL EAR: Yes external ears normal Eye: COMMON NORMALS: Equal, round and reactive pupils present, EOMs intact bilaterally, conjunctivae normal and no scleral icterus GENERAL EYE: appearance normal, both eyes and all related structures EYELID: eyelids normal CONJUNCTIVA: Yes conjunctivae normal SCLERA: sclerae normal PUPIL: Yes Equal, round and reactive pupils present Neck/C-Spine: COMMON NORMALS: full ROM, supple and no JVD GENERAL: Yes normal visual inspection Lymph: LYMPHATIC: no lymphadenopathy noted and no lymphedema noted Chest: COMMONS NORMALS: normal inspection of the chest; negative for normal palpation of entire chest wall (Tenderness to palpation along the left ribs.) Resp: COMMON NORMALS: normal respiratory effort, No retractions and No use of accessory muscles Cardio: COMMON NORMALS: no JVD, regular rate and regular rhythm RATE: regular rate RHYTHM: regular rhythm GI: COMMON NORMALS: Normal to inspection, nondistended, normoactive bowel sounds present : COMMON NORMALS: Yes no CVA tenderness BLADDER/KIDNEY EXAM: Yes no CVA tenderness Back/Pelvis: COMMON NORMALS: no CVA tenderness and thoracic and lumbar spine normal to inspection Extremity: COMMON NORMALS: normal to inspection, full ROM and capillary refill normal GENERAL: Yes normal exam except as noted Neuro: COMMON NORMALS: patient oriented x3, CN's II-XII intact bilaterally, moves all extremities, no focal motor deficits, no sensory deficits noted and gait normal SENSORIUM/ORIENTATION: Yes alert, Yes oriented to person, Yes oriented to place and Yes oriented to time Psych: COMMON NORMALS: mental status grossly normal, Normal thought process present, cooperative and normal affect THOUGHT PROCESS: Normal thought process present Skin: COMMON NORMALS: no rashes or lesions noted and no wounds GENERAL SKIN EXAM: no rashes or lesions noted Course Vital Signs: Vital signs: Vital Signs Pulse Rate 70 11/19/21 09:36 Respiratory Rate 14 11/19/21 09:36 Blood Pressure 116/57 11/19/21 09:36 Pulse Oximetry 96 11/19/21 09:36 Oxygen Delivery Me thod 11/19/21 09:36 MDM - Chest Pain Medical Decision Making 41-year-old female presenting today with left-sided chest pain. Chest pain is reproducible on exam. EKG is without evidence of significant ST wave changes to suggest acute ischemia. Vitals are within normal limits. Patient is PERC negative. Low suspicion for pulmonary embolism. Abdominal exam is benign. Chest x-ray is unremarkable. Will place patient on diclofenac. Suspect musculoskeletal etiology. Patient was given strict return precautions and recommended routine outpatient follow-up. Lab Data : 11/19/21 09:15 11/19/21 09:15 Radiology Impressions Chest X-Ray 11/19/21 09:59 IMPRESSION: No acute findings. Laboratory Results WBC 6.1 10^3/uL (4.0-10.0) 11/19/21 09:15 RBC 4.10 10^6/uL (4.1-5.3) 11/19/21 09:15 Hgb 12.8 g/dL (11.5-15.3) 11/19/21 09:15 Hct 38.1 % (37.0-47.0) 11/19/21 09:15 MCV 92.9 fl (81-99) 11/19/21 09:15 MCH 31.2 pg (28.0-34.0) 11/19/21 09:15 MCHC 33.6 g/dL (30.0-36.0) 11/19/21 09:15 RDW 11.3 % (12.1-15.1) L 11/19/21 09:15 Plt Count 320 10^3/cmm (130-400) 11/19/21 09:15 MPV 9.5 fL (7.4-10.4) 11/19/21 09:15 Neut % (Auto) 65.0 % 11/19/21 09:15 Lymph % (Auto) 21.7 % 11/19/21 09:15 Mathews % (Auto) 8.2 % 11/19/21 09:15 Eos % (Auto) 4.4 % 11/19/21 09:15 Baso % (Auto) 0.5 % 11/19/21 09:15 Neut # (Auto) 3.95 10^3/uL (1.8-7.7) 11/19/21 09:15 Lymph # (Auto) 1.3 10^3/uL (0.8-4.8) 11/19/21 09:15 Mathews # (Auto) 0.5 10^3/uL (0.2-0.9) 11/19/21 09:15 Eos # (Auto) 0.3 10^3/uL (0.0-0.8) 11/19/21 09:15 Baso # (Auto) 0.0 10^3/uL (0.0-0.1) 11/19/21 09:15 Nucleated RBC % (auto) 0 % 11/19/21 09:15 Nucleated RBCs # 0.0 /100WBC 11/19/21 09:15 Sodium 139 mmol/L (136-145) 11/19/21 09:15 Potassium 3.7 mmol/L (3.5-5.1) 11/19/21 09:15 Chloride 104 mmol/L (98-107) 11/19/21 09:15 Carbon Dioxide 23 mmol/L (22-29) 11/19/21 09:15 Anion Gap 15.7 (5-19) 11/19/21 09:15 BUN 11 mg/dL (6-20) 11/19/21 09:15 Creatinine 0.6 mg/dL (0.5-0.9) 11/19/21 09:15 GFR Calculation 109.6 mL/min (90-130) 11/19/21 09:15 Glucose 97 mg/dL (65-115) 11/19/21 09:15 Calculated Osmolality 287 mOsm/kg (285-295) 11/19/21 09:15 Calcium 8.6 mg/dL (8.5-10.5) 11/19/21 09:15 Total Bilirubin 0.6 mg/dL (0.15-1.2) 11/19/21 09:15 AST 19 U/L (0-32) 11/19/21 09:15 ALT 15 U/L (0-33) 11/19/21 09:15 Alkaline Phosphatase 70 U/L (35-105) 11/19/21 09:15 Troponin T Baseline 6 ng/L (0-10) 11/19/21 09:15 Total Protein 6.8 g/dL (6.6-8.7) 11/19/21 09:15 Albumin 4.1 g/dL (3.5-5.2) 11/19/21 09:15 Globulin 2.7 g/dL (1.3-4.6) 11/19/21 09:15 Discharge Plan Discharge Patient Disposition: Home Clinical Impression: Chest pain Condition: Stable Prescriptions: New diclofenac sodium 75 mg tablet,delayed release (DR/EC) 75 mg PO BID Qty: 30 0RF Discharge Orders: Discharge ED (Routine); Ordered 11/19/21 Ordered By: Srini Gomez Referrals: Elizabeth Lucero FNP [Primary Care Provider] - Patient Instructions: Chest Pain (ED) Coding Level of Care Code ED Iron Miner Blasting for Chg Fwd Exam Comprehensive
[2021-11-19] MEDS: ketorolac 30 mg/mL INJ 15 MG IVP (09:25)
[2021-11-19 09:29] LABS: Basophils % 0.5 %; Eosinophils # 0.3 10^3/uL (0.0-0.8); Eosinophils % 4.4 %; Hematocrit 38.1 % (37.0-47.0); Hemoglobin 12.8 g/dL (11.5-15.3); Lymphocytes # 1.3 10^3/uL (0.8-4.8); Lymphocytes % 21.7 %; Mean Corpuscular HGB Conc 33.6 g/dL (30.0-36.0); Mean Corpuscular Hemoglobin 31.2 pg (28.0-34.0); Mean Corpuscular Volume 92.9 fl (81-99); Mean Platelet Volume 9.5 fL (7.4-10.4); Monocytes # 0.5 10^3/uL (0.2-0.9); Monocytes % 8.2 %; Neutrophils # 3.95 10^3/uL (1.8-7.7); Nucleated Red Blood Cells % 0 %; Platelet Count 320 10^3/cmm (130-400); Red Cell Distribution Width 11.3 % (12.1-15.1); White Blood Count 6.1 10^3/uL (4.0-10.0)
[2021-11-19 09:36] VITALS: BP 116/57; PULSE 70; RESP 14; O2SAT 96
[2021-11-19 09:56] LABS: Troponin(5th) Baseline 6 ng/L (0-10)
[2021-11-19 09:58] LABS: Alanine Aminotransferase 15 U/L (0-33); Albumin Level 4.1 g/dL (3.5-5.2); Alkaline Phosphatase 70 U/L (35-105); Anion Gap 15.7 (5-19); Aspartate Amino Transferase 19 U/L (0-32); Blood Urea Nitrogen 11 mg/dL (6-20); Calcium 8.6 mg/dL (8.5-10.5); Carbon Dioxide 23 mmol/L (22-29); Chloride 104 mmol/L (98-107); Globulin 2.7 g/dL (1.3-4.6); Glomerular Filtration Rate 109.6 mL/min (90-130); Glucose 97 mg/dL (65-115); Osmolality Calculated 287 mOsm/kg (285-295); Potassium 3.7 mmol/L (3.5-5.1); Sodium 139 mmol/L (136-145); Total Bilirubin 0.6 mg/dL (0.15-1.2); Total Protein 6.8 g/dL (6.6-8.7)
--- NOTE | 2021-11-19 09:59 | XRR_ITS ---
PROCEDURE INFORMATION: Exam: XR Chest Exam date and time: 11/19/2021 10:20 AM Age: 41 years old Clinical indication: Pain; Left-sided; Additional info: Chest pain TECHNIQUE: Imaging protocol: Radiologic exam of the chest. Views: 2 views. COMPARISON: CR XR chest 1V portable [id number] 04/28/2020 11:03 AM FINDINGS: Lungs: Unremarkable. No consolidation. Pleural spaces: Unremarkable. No pleural effusion. No pneumothorax. Heart/Mediastinum: Unremarkable. No cardiomegaly. Bones/joints: Unremarkable. XR/XR chest 2V* [id number] IMPRESSION: No acute findings.
[2021-11-19 11:20] VITALS: BP 115/99; PULSE 66; RESP 14; O2SAT 98
== END 2021-11-19 11:21 | disposition home or self-care (01) ==
PROVIDERS: Emergency Provider Emergency Medicine; PCP Nurse Practitioner Family
DX: R07.9 Chest pain, unspecified (principal)
CPT/HCPCS: 71046; 80053; 84484; 85025; 93005; 96374; 99285; J1885

== ENCOUNTER → 2021-12-06 08:16 | Outpatient (BNVA) | payer BC, SELFPAY | PROVIDERS: PCP Family Medicine; Visit Provider Family Medicine | DX: R07.89 Other chest pain (principal); Z13.220 Encounter for screening for lipoid disorders; Z13.6 Encounter for screening for cardiovascular disorders | CPT/HCPCS: 80048; 80061; 84443 ==

== ENCOUNTER 2021-12-28 07:51 | Outpatient (CLI) | payer BC, SELFPAY ==
--- NOTE | 2021-12-28 07:59 | MM_ITS ---
WS: [id number] VIEWS: MLO and CC views both breasts. 3D digital tomosynthesis is also included in this exam. Comparison made with prior exam of 11/25/2009, 07/04/2011, 12/31/2014, 01/11/2016, 02/18/2017, 06/18/2019. . Findings: There was no sign of mass, architectural distortion or suspicious calcification in either breast. Par tially obscured rounded density in the medial aspect of the left breast measures about 3.6 cm at grea test diameter. This is probably a large cyst. Milk of calcium in microcysts noted in both breasts.The breasts are extremely dense. Left breast ultrasound would be recommended for further workup. MM/[place] [facility] [place] [id number] Impression: BI-RADS: 0-Incomplete: Need additional imaging evaluation FOLLOW-UP: See Report This mammogram was also analyzed by the Computer Aided Detection System R2 Imag e Rope Tow Operator.
== END 2021-12-28 07:52 | disposition home or self-care (01) ==
LOC: RAD 07:51
PROVIDERS: PCP Family Medicine; Visit Provider Family Medicine
DX: Z12.31 Encounter for screening mammogram for malignant neoplasm of breast (principal); Z80.3 Family history of malignant neoplasm of breast
CPT/HCPCS: 77063; 77067

== ENCOUNTER 2022-01-17 07:45 | Outpatient (CLI) | payer BC, SELFPAY ==
--- NOTE | 2022-01-17 08:01 | US_ITS ---
WS: [id number] ULTRASOUND LEFT BREAST, complete HISTORY: Abnormal mammogram. COMPARISON: Mammogram 12/28/2021 and prior breast ultrasound 11/25/2009 TECHNIQUE: 2-D and Doppler. Ovoid simple cyst 10:00 LEFT breast 2 cm from the nipple. This cyst measures 2.0 x 0.8 x 1.8 cm. Ther e are a few scattered additional cysts throughout the breast. There is a single hypoechoic mass witho ut increased vascularity LEFT breast at 11:00, 1 cm from the nipple. There is through transmission. T his mass measures 5 x 7 x 6 mm. This is not a simple cyst. US/US breast LT complete [id number] IMPRESSION: BI-RADS: 3-Probably Benign FOLLOW-UP: 6 Month Follow-up 1. Large LEFT breast mass seen on recent mammogram corresponds to a cyst. 2. Additional hypoechoic mass at 11:00, 1 cm from the nipple may be a complex cyst or fibroadenoma. Recommend 6 month LEFT breast ultrasound follow-up evalua tion of the solid mass.
== END 2022-01-17 07:46 | disposition home or self-care (01) ==
PROVIDERS: PCP Family Medicine; Visit Provider Family Medicine
DX: R92.8 Other abnormal and inconclusive findings on diagnostic imaging of breast (principal); N60.02 Solitary cyst of left breast; N63.22 Unspecified lump in the left breast, upper inner quadrant
CPT/HCPCS: 76641

== ENCOUNTER → 2022-04-06 13:32 | Outpatient (BNVA) | payer OTHER, SELFPAY | PROVIDERS: PCP Family Medicine; Visit Provider Nurse Practitioner Family | DX: S49.91XA Unspecified injury of right shoulder and upper arm, initial encounter (principal); X58.XXXA Exposure to other specified factors, initial encounter | CPT/HCPCS: 73030 ==

== ENCOUNTER 2022-05-14 06:07 | Outpatient (CLI) | payer OTHER, SELFPAY ==
--- NOTE | 2022-05-14 07:15 | MR_ITS ---
WS: [id number] EXAMINATION: MR shoulder RT wo con* [id number] ORDER DATE: 05/14/2022 7:07 AM COMPARISON: None. HISTORY: persistant pain and weakness right shoulder p injury CONTRAST: None. TECHNIQUE: Axial T2 STAR, coronal proton density fat sat, sagittal T2 fat sat, sagittal proton densit y fat sat, axial proton density fat sat, coronal T2 fat sat, and coronal T1 performed. After contrast , axial T1 fat sat, coronal T1 fat sat, and sagittal T1 fat sat were performed. FINDINGS: Mild degenerative arthritis AC joint with mild edema. Mild impingement distal supraspinatus with slig ht subacromial spurring. Small amount of subacromial fluid. Tendinopathy distal supraspinatus. Small intrasubstance bursal surface tear deep to the acromion. Nor mal infraspinatus. Normal teres minor. Normal subscapularis. Normal biceps tendon 6 in the bicipital groove. Glenoid labrum appears grossly intact. Intra-articular biceps tendon appears intact. MR/MR shoulder RT wo con* [id number] IMPRESSION: 1. Degenerative arthritis AC joint with subacromial fluid with subacromial spu rring and slight impingement on the distal supraspinatus. 2. Small intrasubstance bursal surface tear distal supraspinatus. 3. Rotator cuff is otherwise intact. 4. Normal biceps tendon in the bicipital groove. 5. No other acute findings.
== END 2022-05-14 06:08 | disposition home or self-care (01) ==
PROVIDERS: PCP Family Medicine; Visit Provider Family Medicine
DX: M25.511 Pain in right shoulder (principal); R53.1 Weakness; M13.811 Other specified arthritis, right shoulder; M75.101 Unspecified rotator cuff tear or rupture of right shoulder, not specified as traumatic
CPT/HCPCS: 73221

== ENCOUNTER → 2022-05-26 13:46 | Outpatient (BNVA) | payer BC, SELFPAY | PROVIDERS: PCP Family Medicine; Visit Provider Registered Nurse Neonatal Intensive Care | DX: R05.9 Cough, unspecified (principal) | CPT/HCPCS: 87426 ==

== ENCOUNTER → 2022-06-14 10:12 | Outpatient (BNVA) | payer SELFPAY | PROVIDERS: PCP Family Medicine; Visit Provider Nurse Practitioner Family | DX: J32.9 Chronic sinusitis, unspecified (principal) | CPT/HCPCS: 87400; 87426 ==

== ENCOUNTER 2022-07-30 15:54 | Outpatient (CLI) | payer BC, SELFPAY ==
--- NOTE | 2022-07-30 16:15 | XRR_ITS ---
PROCEDURE INFORMATION: Exam: XR Chest Exam date and time: 07/30/2022 4:20 PM Age: 42 years old Clinical indication: Shortness of breath TECHNIQUE: Imaging protocol: Radiologic exam of the chest. Views: 2 views. COMPARISON: CR XR chest 2V* [id number] 11/19/2021 10:20 AM FINDINGS: Lungs: Interval development of patchy right middle lobe atelectasis versus pneumonia. Pleural spaces: No pleural effusion. No pneumothorax. Heart/Mediastinum: The cardiac silhouette and mediastinal contours are unremarkable. Bones/joints: Unremarkable for age. XR/XR chest 2V* [id number] IMPRESSION: Interval development of patchy right middle lobe atelectasis versus pneumonia. Recommend clinical correlation. Insert chest imaging follow-up
== END 2022-07-30 15:55 | disposition home or self-care (01) ==
PROVIDERS: PCP Family Medicine; Visit Provider Family Medicine
DX: R06.02 Shortness of breath (principal); R91.8 Other nonspecific abnormal finding of lung field
CPT/HCPCS: 71046

== ENCOUNTER 2022-09-24 07:20 | Outpatient (CLI) | payer SELFPAY ==
--- NOTE | 2022-09-24 07:30 | CT_ITS ---
WS: [id number] CT chest w con* [id number] HISTORY: patchy r middle lobe infiltrate TECHNIQUE: Axial imaging performed through the thorax. Coronal and sagittal reformats are submitted. All CT scans at [facility] use at least one of these dose optimization techniques: automated exposure control; mA and/or kV adjustment per patient size (includes targeted exams where dose is mat ched to clinical indication); or iterative reconstruction. CONTRAST: Omnipaque 350; 100 mL IV. DLP: 165.52 mGy.cm COMPARISON: 03/06/[address], chest radiograph 07/30/2022 Lungs and central airway: Chronic emphysematous changes. Bilateral nodules and subcentimeter opacific ations. Some of these nodules were present on the prior study from 2019. Other nodules and opacificat ions are new. Opacifications and nodules are less than a centimeter and probably postinflammatory. Th cortez will need to be reevaluated for interval growth. No dense area of consolidation or pneumonia. Pleura: Normal. No pleural effusion. Heart and pericardium: Mild cardiomegaly. No pericardial effusion. Mediastinum and tea: Mediastinal and hilar lymphadenopathy is identified. Lymph nodes were prominent on the prior study from 2019 with increase. Prevascular and anterior mediastinal lymph nodes are enl arged. High right paratracheal lymph node at 1.6 cm. Subcarinal lymph node at 2.6 cm. Bilateral hilar lymphadenopathy. Vessels: Normal size aortic and pulmonary artery. No coronary artery calcifications. Chest wall and lower neck: No soft tissue masses. Upper abdomen: Normal. Osseous structures: No destructive process. IMPRESSION: 1. Subcentimeter nodules and opacifications in multiple lobes. Some of these nodules were present in 2019. May be postinflammatory. These nodules and opacifications may not be evident by PET/CT due to t heir small size. Follow-up chest CT with IV contrast in 3 months. 2. Mediastinal and hilar lymphadenopathy. Lymph nodes were prominent in 2019 but have increased in si ze and number. This may be reactive lymphadenopathy but neoplastic adenopathy should be considered. C onsider follow-up PET/CT.
[2022-09-24] MEDS: iohexol 350 mg/mL 500 mL Btl (per mL) IV (07:43)
== END 2022-09-24 07:21 | disposition home or self-care (01) ==
PROVIDERS: PCP Family Medicine; Visit Provider Family Medicine
DX: D86.9 Sarcoidosis, unspecified (principal); R06.02 Shortness of breath; R91.8 Other nonspecific abnormal finding of lung field; R59.0 Localized enlarged lymph nodes
CPT/HCPCS: 71260; Q9967

== ENCOUNTER → 2022-09-26 08:15 | Outpatient (BNVA) | payer SELFPAY | PROVIDERS: PCP Family Medicine; Visit Provider Family Medicine | DX: R06.02 Shortness of breath (principal); R59.0 Localized enlarged lymph nodes; R91.1 Solitary pulmonary nodule | CPT/HCPCS: 80053; 85025 ==

== ENCOUNTER → 2022-10-09 16:17 | Outpatient (BNVA) | payer SELFPAY | PROVIDERS: PCP Family Medicine; Referring Provider Family Medicine; Visit Provider Internal Medicine Pulmonary Disease | DX: J30.2 Other seasonal allergic rhinitis (principal) | CPT/HCPCS: 93005 ==

== ENCOUNTER 2022-10-10 07:58 | Outpatient (CLI) | payer SELFPAY ==
[2022-10-10 08:20] VITALS: PULSE 91; RESP 18; O2SAT 97
[2022-10-10] MEDS: albuterol 2.5 mg/3 mL Neb INHALATION (08:24)
[2022-10-10 08:25] VITALS: PULSE 87
== END 2022-10-10 07:59 | disposition home or self-care (01) ==
PROVIDERS: PCP Family Medicine; Visit Provider Family Medicine
DX: R06.02 Shortness of breath (principal); R91.1 Solitary pulmonary nodule; R59.0 Localized enlarged lymph nodes
CPT/HCPCS: 94060; J7613

== ENCOUNTER 2022-10-17 06:34 | Outpatient (CLI) | payer SELFPAY ==
--- NOTE | 2022-10-17 06:45 | USCV_ITS ---
Josefina Francisco Age: 42 Gender: F : 1980 Exam Date: 10/17/2022 06:51 Ordering Phys: Marino Conner MD Technologist: Farnaz Orr [place] [facility] [place]ication: SARCOIDOSIS WITH DYSPNEA (CARDIAC) BP: / HR: 66 Rhythm: Sinus Technical Quality: Adequate MEASUREMENTS (Male / Female) Normal Values 2D ECHO LV Diastolic Diameter PLAX 4.2 cm 4.2 - 5.9 / 3.9 - 5.3 cm LV Systolic Diameter PLAX 2.8 cm LV Chamber Size 3.6 cm IVS Diastolic Thickness 0.8 cm 0.6 - 1.0 / 0.6 - 0.9 cm IVS Systolic Thickness 0.8 cm LVPW Diastolic Thickness 0.8 cm 0.6 - 1.0 / 0.6 - 0.9 cm LVPW Systolic Thickness 1.4 cm RV Chamber Size 2.6 cm LVOT Diameter 2.0 cm LV Ejection Fraction 2D Teich 61.7 % LV Ejection Fraction MOD 2C 65.3 % LV Ejection Fraction 2C AL 64.3 % LA Diameter 2.4 cm LA Width 3.1 cm LA Height 2.5 cm RA Width 2.8 cm RA Height 2.8 cm Aorta at Sinotubular Diameter 2.6 cm IVC Diameter 1.2 cm M-MODE Aortic Annulus Diameter 3.1 cm LA Ao Ratio MM 0.9 MV E Point Septal Separation 0.4 cm DOPPLER AV Peak Velocity 126.0 cm/s LVOT Peak Velocity 84.0 cm/s AV Area Cont Eq vti 2.1 cm squared AV Area Cont Eq pk 2.1 cm squared MV Area PHT 4.6 cm squared Mitral E to A Ratio 1.6 MV E' Velocity 46.0 cm/s Mitral E to MV E' Ratio 6.0 Mitral E to LV E' Lateral Ratio 6.0 Mitral E to LV E' Septal Ratio 6.1 TR Peak Velocity 140.2 cm/s TR Peak Gradient 7.9 mmHg TR Mean Velocity 107.6 cm/s TR Mean Gradient 5.9 mmHg TR Velocity Time Integral 33.8 cm TV Peak E Velocity 70.0 cm/s Right Atrial Pressure 3.0 mmHg Pulmonary Artery Systolic Pressu 10.9 mmHg RV Acceleration Time 0.1 s RV Ejection Time 0.3 s RV AcT/ET 0.4 FINDINGS Left Ventricle Normal left ventricular size and systolic function, EF 64 %. No regional wall motion abnormalities. Right Ventricle The right ventricle is normal in size and function. Right Atrium The right atrium is normal in size. Left Atrium The left atrium is normal in size. Mitral Valve No gross abnormalities noted Aortic Valve No gross abnormalities noted Tricuspid Valve Trace of tricuspid regurgitation. Estimated PA pressure of 11 mmHg Pulmonic Valve No gross abnormalities noted Pericardium Normal pericardium without effusion. Aorta Normal ascending aorta dimension. IVC The inferior vena cava appears normal. CONCLUSIONS Normal left ventricular size and systolic function, EF 64 %. No regional wall motion abnormalities. Normal RV size and ejection fraction. Normal cardiac chamber sizes. Trace of tricuspid regurgitation . Possibly normal pulmonary artery pressure. Because of the poor Doppler signals, the PA pressure estimation could be misleading No significant valvular abnormalities. There is no pericardial effusion. There are no intracardiac masses. No similar previous studies are available for comparison Dr Radha Flynn MD [facility] (Electronically Signed) Final Date: 17 October 2022 08:52 S
[2022-10-18 12:14] LABS: Angiotensin Converting Enzyme 39 U/L (9-67)
[2022-10-18 15:09] LABS: Alternaria Alternata (M6) Ige <0.10 kU/L; Alternaria Class 0; Bermuda Class 0; Bermuda Grass (G2) Ige <0.10 kU/L; Cat Dander (E1) Ige <0.10 kU/L; Cat Dander Class 0; Common Ragweed (Short) (W1) Ig <0.10 kU/L; D. Farinae Class 0; Dermatophagoides Class 0; Dermatophagoides Farinae (D2) <0.10 kU/L; Dermatophagoides Pteronyssinus <0.10 kU/L; Dog Dander (E5) Ige <0.10 kU/L; Dog Dander Class 0; Elm (T8) Ige <0.10 kU/L; Elm Class 0; English Plantain (W9) Ige <0.10 kU/L; English Plantain Class 0; House Dust (Greer) (H1) Ige <0.10 kU/L; House Dust (Hollister- Stier) <0.10 kU/L; House Dust Class 0; Immunoglobulin E 5 kU/L (<OR=114); Johnson Grass (G10) Ige <0.10 kU/L; Johnson Grass Cl 0; June Grass Class 0; June Grass(Kentucky Blue) (G8) <0.10 kU/L; Lamb'S Quarters (Goose Foot) <0.10 kU/L; Lamb'S Quarters Class 0; Maple (Box Elder) (T1) Ige <0.10 kU/L; Maple Class 0; Meadow Fescue (G4) Ige <0.10 kU/L; Meadow Fescue Class 0; Mucor Racemosus Class 0; Oak (T7) Ige <0.10 kU/L; Oak Class 0; Orchard Grass (Cocksfoot) (G3) <0.10 kU/L; Penicillium Class 0; Penicillium Notatum (M1) Ige <0.10 kU/L; Perennial Rye Grass (G5) Ige <0.10 kU/L; Perennial Rye Grass Class 0; Ragweeed Class 0; Rough Marsh Elder (W16) Ige <0.10 kU/L; Rough Marsh Elder Class 0; Sweet Vernal Class 0; Sweet Vernal Grass (G1) Ige <0.10 kU/L; Timothy Grass (G6) Ige <0.10 kU/L; Timothy Grass Class 0
[2022-10-22 17:34] LABS: Aspergillus Fumigatus, Igg Ab, 30.2 mg/L (<=102)
== END 2022-10-17 06:35 | disposition home or self-care (01) ==
PROVIDERS: PCP Family Medicine; Visit Provider Internal Medicine Pulmonary Disease
DX: D86.9 Sarcoidosis, unspecified (principal); J30.2 Other seasonal allergic rhinitis; R06.00 Dyspnea, unspecified
CPT/HCPCS: 36415; 82164; 82785; 86003; 93306

== ENCOUNTER 2022-11-29 12:44 | Emergency (ER) | payer SELFPAY ==
--- NOTE | 2022-11-29 13:04 | ECG_ITS ---
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 Measurements Intervals [place] Rate: 99 P: 76 [place]: 171 QRS: 87 QRSD: 109 T: 61 QT: 369 QTc: 474 Interpretive Statements SINUS RHYTHM INCOMPLETE RIGHT BUNDLE BRANCH BLOCK [90+ ms QRS DURATION, TERMINAL R IN V1/V2, 40+ ms S IN I/aVL/V4/V5/V6] Compared to ECG 10/09/2022 16:27:25 No significant changes Electronically Signed On 11-30-2022 1:05:24 CDT by Radha Flynn M.D. [id number]
--- NOTE | 2022-11-29 13:04 | CT_ITS ---
WS: [id number] CT HEAD TECHNIQUE: Noncontrast CT of the head obtained from the skullbase to the vertex. CLINICAL INFORMATION: Symptoms of acute stroke COMPARISON: 02/18/2019 DLP: [id number] scans at [facility] use at least one of these dose optimization techniques: automated e xposure control; mA and/or kV adjustment per patient size (includes targeted exams where dose is matc hed to clinical indication); or iterative reconstruction. FINDINGS: No evidence of intracranial hemorrhage or mass effect. Ventricular system and basal cisterns are angelo nt. No extra-axial fluid collections. No evidence of mass or mass effect. Normal graham-white different iation. Paranasal sinuses and mastoid air cells are well aerated. .Normal visualized soft tissues. IMPRESSION: 1. No evidence of intracranial hemorrhage or mass effect. 2. No acute intracranial findings. Notified Richard Sun MD at 11/29/2022 1:22 PM.
--- NOTE | 2022-11-29 13:04 | CT_ITS ---
WS: [id number] CTA HEAD AND NECK TECHNIQUE: Contrast enhanced CTA of the head and neck with coronal and sagittal reformatted images an d maximum intensity projection (MIP) images. NASCET criteria utilized. CLINICAL INFORMATION: AMS COMPARISON: None. DLP: [address] scans at [facility] use at least one of these dose optimization techniques: automated e xposure control; mA and/or kV adjustment per patient size (includes targeted exams where dose is matc hed to clinical indication); or iterative reconstruction. FINDINGS: RIGHT: RIGHT common carotid artery is patent. No significant RIGHT ICA stenosis. RIGHT ICA is patent to the skull base. LEFT: LEFT common carotid artery is patent. No significant LEFT ICA stenosis. LEFT ICA is patent to the skull base. LEFT dominant vertebral artery. Both vertebral arteries are patent. Basilar artery is patent. Normal vascularity to the PARTS REMOVER territory bilaterally. Both ICAs are patent at the skull base. Patent anterior communicating artery. Normal vascularity to t he JOCE and MCA territories bilaterally. No evidence of proximal flow-limiting stenosis or aneurysm. Lung apices are well aerated. Normal posterior nasopharynx and parapharyngeal fat. Straightening with slight reversal normal cervical lordosis. Mild spondylitic changes cervical spine. Disc osteophyte c omplex RIGHT C5-6 with mild central canal stenosis unchanged compared to the prior studies IMPRESSION: 1. Normal neck and intracranial CTA. 2. No proximal flow-limiting stenosis. 3. Disc osteophyte complex RIGHT C5-6 with mild central canal stenosis unchanged compared to the lizette or studies Notified Richard Sun MD at 11/29/2022 1:35 PM.
--- NOTE | 2022-11-29 13:04 | W.ED.AMS ---
HPI - Altered Mental Status General: Chief Complaint: Neuro Symptoms/Deficit Stated Complaint: chest tightness, SOB Time Seen by Provider: 11/29/22 12:52 History of Present Illness: 42-year-old female presents emergency department from her primary care physician's office. The patient states that she initially was being seen for chest tightness and shortness of breath and was given a breathing treatment at the physician's office at which time she became very anxious and nervous and jittery and was told to come to the emergency department for concerns of strokelike symptoms. Patient does appear to be very anxious. She does states she has a history of sarcoidosis. She also complains of lower left leg calf pain that they are concerned for a DVT. She states her chest tightness is a 1 out of 10. Review of Systems General: Reports: 10 or more systems reviewed and unremarkable except in HPI and below Card: Reports: chest pain Resp: Reports: dyspnea and non-productive cough Musc: Reports: extremity pain PFSH ED PFSH: Medical History Cervical stenosis of spinal canal Lung nodule Surgical History History of appendectomy History of bronchoscopy History of hysterectomy still has both ovaries Status post myringotomy with insertion of tube Family History Mother Heart disease Diabetes Breast cancer Cancer lung cancer Father Stroke Hypertension Hypercholesteremia Diabetes Asthma Cancer esophageal Social History Smoking and tobacco/nicotine status: never used tobacco/nicotine Alcohol intake: never Substance/Drug Use: never Lives independently: Yes Household members: spouse and children Marital status: Number of children: 3 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 Do you think of yourself as: Straight/Heterosexual Myrtle/Restoration: Apostolic Female Reproductive History: Spontaneous abortions: No Physical Exam Const: COMMON NORMALS: no acute distress, patient oriented x3 and alert HENMT: COMMON NORMALS: normocephalic, atraumatic, Normal nasal mucous membranes and turbinates present and moist oral mucous membranes HEAD & SCALP: normocephalic and atraumatic NOSE: Normal nasal mucous membranes and turbinates present Eye: COMMON NORMALS: Equal, round and reactive pupils present and EOMs intact bilaterally PUPIL: Yes Equal, round and reactive pupils present Neck/C-Spine: COMMON NORMALS: full ROM, supple and no meningeal signs Chest: COMMONS NORMALS: normal inspection of the chest and normal palpation of entire chest wall Resp: COMMON NORMALS: normal respiratory effort, No retractions and clear to auscultation bilaterally AUSCULTATION: clear to auscultation bilaterally Cardio: COMMON NORMALS: regular rate, regular rhythm, S1 normal heart sound present, S2 normal heart sound present and Peripheral pulses 2+ throughout RATE: regular rate RHYTHM: regular rhythm HEART SOUNDS: S1 normal heart sound present and S2 normal heart sound present PERIPHERAL PULSES: Peripheral pulses 2+ throughout GI: COMMON NORMALS: Normal to inspection, nondistended, normoactive bowel sounds present, Soft to palpation and non-tender PALPATION: Yes Soft to palpation : COMMON NORMALS: Yes no CVA tenderness BLADDER/KIDNEY EXAM: Yes no CVA tenderness Back/Pelvis: COMMON NORMALS: no CVA tenderness, thoracic and lumbar spine normal to inspection, no thoracic nor lumbar tenderness and thoraco-lumbar ROM normal Extremity: COMMON NORMALS: normal to inspection, full ROM and capillary refill normal LEFT LOWER EXTREMITY: Yes lower leg (Left posterior calf slightly tender to deep palpation) Neuro: COMMON NORMALS: patient oriented x3 SENSORIUM/ORIENTATION: Yes alert MENINGEAL SIGNS: Yes no meningeal signs CRANIAL NERVES: Yes CN normal except as noted COORDINATION/BALANCE: qdzbus-hq-vmvb test normal, fvpz-wk-poap test normal and Normal rapid alternating movements of the distal upper extremity present (Neuro) SPEECH: speech normal MOTOR EXAM: 5/5 motor strength present throughout, Pronator motor function not present and Motor fasciculations not present COORDINATION: quzasp-xd-hvtn test normal, lpeu-et-rkxk test normal and rapid alternating movement UE normal Psych: MOOD & AFFECT: Yes anxious Skin: COMMON NORMALS: no rashes or lesions noted GENERAL SKIN EXAM: no rashes or lesions noted Course Vital Signs: Vital signs: Vital Signs Temperature 98.1 F 11/29/22 13:13 Pulse Rate 84 11/29/22 13:36 Respiratory Rate 16 11/29/22 13:36 Blood Pressure 117/68 11/29/22 13:36 Pulse Oximetry 98 11/29/22 13:36 Oxygen Delivery Me thod Room Air 11/29/22 13:36 MDM - Altered Mental Status Medical Decision Making Physical exam completed and documented. Given the patient's presentation I suspect this is most likely a manifestation of her steroid and albuterol breathing treatment that she received at her primary care provider's office. She is able to move all extremities well. Her shortness of breath does not appear to be of significance as she does not appear to be tachypneic. Her oxygen saturation on room air is 99%. She does have a history of sarcoidosis and I suspect most likely her chest tightness that occurred after the breathing treatment was a normal side effect of the breathing treatment that she received. I reviewed the CT scan without contrast of the head as well as the CTA head and neck with contrast with the radiologist and there are no acute findings to support CVA or TIA. Given the patient's and the primary care physician's concern for DVT given the left lower leg tenderness I did obtain a D-dimer which is negative. I will at this time recommend that the patient follow-up with her primary care physician for additional evaluation. Medical Records I reviewed the patient's medical records. Lab Data I reviewed the patient's lab results. 11/29/22 13:04 11/29/22 13:04 Laboratory Results WBC 7.78 10^3/uL (3.29-11.43) 11/29/22 13:04 RBC 4.19 10^6/uL (3.85-5.65) 11/29/22 13:04 Hgb 12.90 g/dL (11.27-16.99) 11/29/22 13:04 Hct 38.7 % (36-47) 11/29/22 13:04 MCV 92.4 fl (85-98) 11/29/22 13:04 MCH 30.8 pg (27-33) 11/29/22 13:04 MCHC 33.3 g/dL (30-55) 11/29/22 13:04 RDW 11.5 % (12.1-15.1) L 11/29/22 13:04 Plt Count 358 10^3/cmm (157-399) 11/29/22 13:04 MPV 9.5 fL (7.4-10.4) 11/29/22 13:04 Neut % (Auto) 64.3 % 11/29/22 13:04 Lymph % (Auto) 20.4 % 11/29/22 13:04 Bandera % (Auto) 8.6 % 11/29/22 13:04 Eos % (Auto) 5.9 % 11/29/22 13:04 Baso % (Auto) 0.5 % 11/29/22 13:04 Neut # (Auto) 5.00 10^3/uL (1.8-7.7) 11/29/22 13:04 Lymph # (Auto) 1.6 10^3/uL (0.8-4.8) 11/29/22 13:04 Band[place] # (Auto) 0.7 10^3/uL (0.2-0.9) 11/29/22 13:04 Eos # (Auto) 0.5 10^3/uL (0.0-0.8) 11/29/22 13:04 Baso # (Auto) 0.0 10^3/uL (0.0-0.1) 11/29/22 13:04 Nucleated RBC % (auto) 0 % 11/29/22 13:04 Nucleated RBCs # 0.0 /100WBC 11/29/22 13:04 PT 13.90 SECONDS (12.1-14.9) 11/29/22 13:04 INR 1.04 (0.8-1.2) 11/29/22 13:04 APTT 27.3 SECONDS (23.9-36.7) 11/29/22 13:04 D-Dimer 0.50 ug/mLFEU (0-0.59) 11/29/22 13:04 Sodium 139 mmol/L (136-145) 11/29/22 13:04 Potassium 3.3 mmol/L (3.5-5.1) L 11/29/22 13:04 Chloride 101 mmol/L (98-107) 11/29/22 13:04 Carbon Dioxide 23 mmol/L (22-29) 11/29/22 13:04 Anion Gap 18.3 (5-19) 11/29/22 13:04 BUN 9 mg/dL (6-20) 11/29/22 13:04 Creatinine 0.7 mg/dL (0.5-0.9) 11/29/22 13:04 GFR Calculation 91.3 mL/min (90-130) 11/29/22 13:04 Glucose 98 mg/dL (65-115) 11/29/22 13:04 POC Glucose 95 mg/dL (70-110) 11/29/22 13:02 Calculated Osmolality 287 mOsm/kg (285-295) 11/29/22 13:04 Calcium 9.8 mg/dL (8.5-10.5) 11/29/22 13:04 Total Bilirubin 0.2 mg/dL (0.15-1.2) 11/29/22 13:04 AST 16 U/L (0-32) 11/29/22 13:04 ALT 11 U/L (0-33) 11/29/22 13:04 Alkaline Phosphatase 72 U/L (35-105) 11/29/22 13:04 Total Protein 7.6 g/dL (6.6-8.7) 11/29/22 13:04 Albumin 4.8 g/dL (3.5-5.2) 11/29/22 13:04 Globulin 2.8 g/dL (1.3-4.6) 11/29/22 13:04 Ser , Semi-Qnt 1.00 mIU/mL 11/29/22 13:04 All radiology interpretation(s) finalized by discharge ED provider radiology interpretation(s): IMPRESSION: 1.? Normal neck and intracranial CTA. 2.? No proximal flow-limiting stenosis. 3.? Disc osteophyte complex RIGHT C5-6 with mild central canal stenosis unchanged compared to the prior studies IMPRESSION: 1.? No evidence of intracranial hemorrhage or mass effect. 2.? No acute intracranial findings. Critical Care Time Critical Care Time: Critical Care Time: Yes Total Critical Care Time: 60 Attestation: This case had a high probability of a clinically significant, sudden, or life threatening deterioration of this patient's condition which required my full and direct attention, intervention and personal management. Discharge Plan Discharge Patient Disposition: Home Clinical Impression: Shortness of breath, Anxiety, Pain of left calf Condition: Stable Prescriptions: No Action albuterol sulfate 90 mcg/actuation HFA aerosol inhaler 2 puff inhalation Q6H PRN (Reason: shortness of breath or wheezing) Qty: 8.5 0RF prednisone 10 mg tablets,dose pack See Rx Instructions PO PER PKG DIR Qty: 21 0RF Rx Instructions: PO PER PKG DIR albuterol sulfate 2.5 mg /3 mL (0.083 %) solution for nebulization 2.5 mg inhalation Q6H PRN (Reason: Wheezing) Tylenol Arthritis 650 mg Tablet Extended Release 650 mg PO Q12H PRN (Reason: Pain) Advil 200 mg Tablet 400 mg PO Q6H PRN (Reason: Pain) Discharge Orders: Discharge ED (Routine); Ordered 11/29/22 Ordered By: Richard Sun Referrals: Isabel Oliver MD [Primary Care Provider] - Discharge Diet: Advance as tolerated Discharge Activity: Resume usual activity Patient Instructions: Opioid Safety, Pain Management Coding Level of Care Code ED Spring Fitter Helper for Fredrick Gonsalez
[2022-11-29 13:13] VITALS: BP 131/79; PULSE 97; RESP 15; TEMP 36.7; O2SAT 98; BMI 25.6
[2022-11-29] MEDS: iohexol 350 mg/mL 500 mL Btl (per mL) IV (13:13)
[2022-11-29 13:16] LABS: Basophils % 0.5 %; Eosinophils # 0.5 10^3/uL (0.0-0.8); Eosinophils % 5.9 %; Hematocrit 38.7 % (36-47); Lymphocytes # 1.6 10^3/uL (0.8-4.8); Lymphocytes % 20.4 %; Mean Corpuscular HGB Conc 33.3 g/dL (30-55); Mean Corpuscular Hemoglobin 30.8 pg (27-33); Mean Corpuscular Volume 92.4 fl (85-98); Mean Platelet Volume 9.5 fL (7.4-10.4); Monocytes # 0.7 10^3/uL (0.2-0.9); Monocytes % 8.6 %; Neutrophils % 64.3 %; Nucleated Red Blood Cells % 0 %; Platelet Count 358 10^3/cmm (157-399); Red Blood Count 4.19 10^6/uL (3.85-5.65); Red Cell Distribution Width 11.5 % (12.1-15.1); White Blood Count 7.78 10^3/uL (3.29-11.43)
[2022-11-29 13:29] LABS: INR 1.04 (0.8-1.2)
[2022-11-29 13:31] LABS: Partial Thromboplastin Time 27.3 SECONDS (23.9-36.7)
[2022-11-29 13:35] LABS: Alanine Aminotransferase 11 U/L (0-33); Albumin Level 4.8 g/dL (3.5-5.2); Alkaline Phosphatase 72 U/L (35-105); Anion Gap 18.3 (5-19); Aspartate Amino Transferase 16 U/L (0-32); Blood Urea Nitrogen 9 mg/dL (6-20); Calcium 9.8 mg/dL (8.5-10.5); Carbon Dioxide 23 mmol/L (22-29); Chloride 101 mmol/L (98-107); Globulin 2.8 g/dL (1.3-4.6); Glomerular Filtration Rate 91.3 mL/min (90-130); Glucose 98 mg/dL (65-115); Osmolality Calculated 287 mOsm/kg (285-295); Potassium 3.3 mmol/L (3.5-5.1); Sodium 139 mmol/L (136-145); Total Bilirubin 0.2 mg/dL (0.15-1.2); Total Protein 7.6 g/dL (6.6-8.7)
[2022-11-29 13:36] VITALS: BP 117/68; PULSE 84; RESP 16; O2SAT 98
--- NOTE | 2022-11-29 13:48 | XR_ITS ---
WS: [id number] Portable AP upright chest, 11/29/2022 Clinical Data: Dyspnea/Cough Comparison: Two-view chest, 07/30/2022 Findings: There is a patchy opacity in the right middle lobe which could represent pneumonia and/or a telectasis. No nodules, masses or effusions are seen. The heart is normal. The pulmonary vascularity is not increased. No pneumothorax is seen. There is contrast material in the kidneys from a recent CT scan. Impression: Minimal patchy right middle lobe opacity and recommend follow-up chest x-ray in 2 to 3 days.
--- NOTE | 2022-11-29 13:55 | P.CONIM_ITS ---
Providers/Reason For Consult Consulting Physician/Specialty*: Tong Jenkins MD neurology and epilepsy Reason for Consult*: Critical care code stroke emergency room bed #10 Primary Care Provider: Isabel Oliver MD History of Present Illness History of Present Illness Josefina Francisco is a 42 year old female With a history of pulmonary sarcoidosis. Patient stated that her condition was diagnosed in July 2022. The patient repor ts that she was at her family physician's office secondary to chest tightness. The patient stated she was given a steroid treatment and suddenly felt weak and was shaking all over. Patient also stated that she was sent to the emergency room to assess for possibility of left lower extremity deep venous thrombosis. Code stroke was initiated and neurology consult was requested Patient transferred to emergency department room #10. NIH score =1 secondary to some hesitance/stuttering during speaking. But at other times during talking the patient speech was more fluent. Motor testing 5/5 bilaterally and there was no facial weakness or visual complaints. Noncontrast head CT and CT angiogram of t he head and neck Performed on 11/29/2022 were negative. Note: Since the patient's symptoms were not suggestive of TIAs, and her NIH score =1. The patient was not a candidate for tPA or other thrombolytics and no tPA was administered. Past medical history: Pulmonary sarcoidosis Drug allergies: Phenergan which resulted in hives Outpatient medications: Albuterol multidose inhaler Habits: None Review of Systems General: Reports: 10 or more systems reviewed and unremarkable except in HPI and below Medications/Allergies Home Medications Medication Instructions Recorded Confirmed Last Taken Type albuterol sulfate 90 mcg/actuation 2 puff inhalation Q6H PRN 09/25/22 11/29/22 Unknown Rx aerosol inhaler shortness of breath or wheezing #8.5 grams acetaminophen 650 mg 650 mg PO Q12H PRN Pain 11/29/22 11/29/22 Unknown History tablet,extended release albuterol sulfate 2.5 mg/3 mL 2.5 mg inhalation Q6H PRN Wheezing 11/29/22 11/29/22 Unknown History (0.083 %) solution for nebulization ibuprofen 200 mg tablet (Advil) 400 mg PO Q6H PRN Pain 11/29/22 11/29/22 Unknown History Allergies Allergy/AdvReac Type Severity Reaction Status Date / Time promethazine [From Phenergan] Allergy ALGY-Hives Verified 11/29/22 13:34 PFSH Acute PFSH: Medical History Cervical stenosis of spinal canal Lung nodule Surgical History History of appendectomy History of bronchoscopy History of hysterectomy still has both ovaries Status post myringotomy with insertion of tube Family History Mother Heart disease Diabetes Breast cancer Cancer lung cancer Father Stroke Hypertension Hypercholesteremia Diabetes Asthma Cancer esophageal Social History Smoking and tobacco/nicotine status: never used tobacco/nicotine Alcohol intake: never Substance/Drug Use: never Lives independently: Yes Household members: spouse and children Marital status: Number of children: 3 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 The patient is alert. The patient answered all questions correctly and followed commands. She is shaky/tremulous which the patient thinks is related to the prednisone treatment she received at the family physician's office. Patient denies visual loss. Pupils 3 to 4 mm round reactive to light and accommodation. Extraocular movements intact. There were no nystagmus. Motor examination 5/5 bilaterally. There was no drift. Deep tendon reflexes 2+ bilaterally. Plantar responses flexor bilaterally. There was no clonus. Sensory examination was intact to gross modalities. There was no extinction on double sensory stimulation. Throat clear. Lungs clear. Heart regular rhythm and rate extremities were negative for clubbing cyanosis or edema. There was no signs of any ataxia. Data 11/29/22 13:04 11/29/22 13:04 A&P Assessment and plan (1) Sarcoidosis: Impression: 1. Code stroke emergency department room 10, NIH score = 1, and noncontrast head CT and CT angiogram of the head and neck reported to be negative. Clinical symptoms most likely related to shortness of breath due to sarcoidosis 2. Pulmonary sarcoidosis 3. Left calf pain and concerns for possible left lower extremity DVT 4. Generalized body tremors possibly related to steroid treatment for sarcoidosis Plan: 1. Agree with treatment for sarcoidosis and evaluate for left lower extremity DVT 2. No further recommendations from neurological standpoint (2) Shortness of breath: Consult Attestations Medical Necessity Statement: Patient seen by neurology for critical care code stroke emergency department room 10 Coding Level of Care Code 23920 Diagnoses Sarcoidosis D86.9 Shortness of breath R06.02
[2022-11-29 14:43] LABS: Glucose Point of Care 95 mg/dL (70-110)
== END 2022-11-29 14:27 | disposition home or self-care (01) ==
PROVIDERS: Emergency Provider Internal Medicine; PCP Family Medicine
DX: R06.02 Shortness of breath (principal); F41.9 Anxiety disorder, unspecified; M79.18 Myalgia, other site
CPT/HCPCS: 36415; 36416; 70450; 70496; 70498; 71045; 80053; 82962; 84702; 85025; 85378; 85610; 85730; 93005; 99285; Q9967

== ENCOUNTER 2023-01-22 13:17 | Emergency (ER) | payer SELFPAY ==
--- NOTE | 2023-01-22 13:24 | XR_ITS ---
WS: [id number] Exam: XR chest 1V portable [id number] Date/Time of Exam: 01/22/2023 1:27 PM Reason For Exam: dyspnea/cough Comparison 11/29/2022. The lungs are fully expanded and clear. No pleural effusion. Normal cardiomediastinal silhouette. Bon y structures are intact. IMPRESSION: 1. No acute cardiopulmonary finding.
--- NOTE | 2023-01-22 13:24 | ECG_ITS ---
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 [id number]
--- NOTE | 2023-01-22 13:25 | W.ED.CHESTPA ---
HPI - Chest Pain General: Chief Complaint: Chest Pain Stated Complaint: CP, SOB, Nausea, neck/shoulder pain, weak Time Seen by Provider: 01/22/23 13:21 Source: patient Mode of arrival: ambulatory History of Present Illness: 43-year-old female presents emergency room planing chest pain and shortness of breath had similar complaints but she states this 1 feels different she was seen in October had a cardiac workup including an echocardiogram all of which was negative. She does have a history of sarcoidosis. No recent fevers sweats or chills. Pain is positional worse when sitting up or with deep inspiration. No fever sweats chills nonproductive cough no vomiting or diarrhea MD complaint: chest pain Pertinent past history: other (Sarcoid) Onset (ago): day(s) Onset: during rest Pain location: left chest Pain radiation: left arm and neck Quality: sharp Exacerbating factors: inspiration and supine (Position changes) Associated symptoms: Reports dyspnea and nausea; Deny abdominal pain, diaphoresis, fever(s), leg edema, palpitations, sense of impending doom, syncope, vomiting or other Treatment prior to arrival: none Review of Systems Const: Denies: fever(s), chills or diaphoresis Card: Reports: chest pain and dyspnea on exertion; Denies: palpitations or syncope Resp: Reports: dyspnea GI: Reports: nausea; Denies: abdominal pain, vomiting or diarrhea : Denies: dysuria, urinary frequency or urinary urgency Musc: Denies: neck pain or back pain Skin/Breast: Denies: rash PFSH ED PFSH: Medical History Right shoulder strain Cervical stenosis of spinal canal Lung nodule Surgical History Status post myringotomy with insertion of tube History of bronchoscopy History of hysterectomy still has both ovaries History of appendectomy Family History Mother Heart disease Diabetes Breast cancer Cancer lung cancer Father Stroke Hypertension Hypercholesteremia Diabetes Asthma Cancer esophageal Social History Smoking and tobacco/nicotine status: never used tobacco/nicotine Alcohol intake: never Substance/Drug Use: never Lives independently: Yes Household members: spouse and children Marital status: Number of children: 3 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 Do you think of yourself as: Straight/Heterosexual Myrtle/Restoration: Apostolic Female Reproductive History: Spontaneous abortions: No Physical Exam Const: COMMON NORMALS: no acute distress GENERAL APPEARANCE: cooperative and comfortable ORIENTATION/CONSCIOUSNESS: Yes awake, Yes oriented to person, Yes oriented to place and Yes oriented to time HENMT: COMMON NORMALS: normocephalic, atraumatic and hearing grossly normal bilaterally HEAD & SCALP: normocephalic and atraumatic Resp: COMMON NORMALS: normal respiratory effort, No retractions, No use of accessory muscles and clear to auscultation bilaterally AUSCULTATION: clear to auscultation bilaterally Cardio: COMMON NORMALS: regular rate, regular rhythm and No murmurs present (Cardio) RATE: regular rate RHYTHM: regular rhythm GI: COMMON NORMALS: Soft to palpation and No hepatosplenomegaly present AUSCULTATION: Yes normoactive bowel sounds PALPATION: Yes Soft to palpation, No Tenderness to palpation present (GI), No Guarding due to palpation present (GI) and Yes No hepatosplenomegaly present Extremity: COMMON NORMALS: normal to inspection, capillary refill normal, no clubbing, cyanosis or edema, no calf tenderness and no pedal edema Neuro: SENSORIUM/ORIENTATION: Yes oriented to person, Yes oriented to place and Yes oriented to time Skin: COMMON NORMALS: no rashes or lesions noted GENERAL SKIN EXAM: no rashes or lesions noted Course Vital Signs: Vital signs: Vital Signs Temperature 98.3 F 01/22/23 13:27 Pulse Rate 78 01/22/23 13:34 Respiratory Rate 18 01/22/23 13:34 Blood Pressure 104/63 01/22/23 13:34 Pulse Oximetry 97 01/22/23 13:34 Oxygen Delivery Me thod Room Air 01/22/23 13:34 MDM - Chest Pain Medical Decision Making Chest pain is atypical in nature worse with repositioning and deep breath. Previous cardiac workup was negative cardiac enzymes today and EKG are unremarkable. Recommend prednisone burst and taper over 21 days. 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 Recommend she contact them today to make arrangements for an appointment and stressed the importance of a further taper be on the prescription given today. If she has worsening pain or symptoms return to the emergency room. No sign of pneumothorax pneumonia acute coronary syndrome widening of the mediastinum. She is not tachycardic or hypoxic is low probability of PE. Medical Records I reviewed the patient's medical records. Lab Data I reviewed the patient's lab results. 01/22/23 13:20 01/22/23 13:20 Laboratory Results WBC 7.82 10^3/uL (3.29-11.43) 01/22/23 13:20 RBC 4.03 10^6/uL (3.85-5.65) 01/22/23 13:20 Hgb 12.30 g/dL (11.27-16.99) 01/22/23 13:20 Hct 36.8 % (36-47) 01/22/23 13:20 MCV 91.3 fl (85-98) 01/22/23 13:20 MCH 30.5 pg (27-33) 01/22/23 13:20 MCHC 33.4 g/dL (30-55) 01/22/23 13:20 RDW 11.4 % (12.1-15.1) L 01/22/23 13:20 Plt Count 309 10^3/cmm (157-399) 01/22/23 13:20 MPV 9.7 fL (7.4-10.4) 01/22/23 13:20 Neut % (Auto) 76.4 % 01/22/23 13:20 Lymph % (Auto) 14.7 % 01/22/23 13:20 Maury % (Auto) 5.5 % 01/22/23 13:20 Eos % (Auto) 2.7 % 01/22/23 13:20 Baso % (Auto) 0.4 % 01/22/23 13:20 Neut # (Auto) 5.98 10^3/uL (1.8-7.7) 01/22/23 13:20 Lymph # (Auto) 1.2 10^3/uL (0.8-4.8) 01/22/23 13:20 Maury # (Auto) 0.4 10^3/uL (0.2-0.9) 01/22/23 13:20 Eos # (Auto) 0.2 10^3/uL (0.0-0.8) 01/22/23 13:20 Baso # (Auto) 0.0 10^3/uL (0.0-0.1) 01/22/23 13:20 Nucleated RBC % (auto) 0 % 01/22/23 13:20 Nucleated RBCs # 0.0 /100WBC 01/22/23 13:20 ESR 13 mm/hr (0-15) 01/22/23 13:20 Sodium 134 mmol/L (136-145) L 01/22/23 13:20 Potassium 3.6 mmol/L (3.5-5.1) 01/22/23 13:20 Chloride 100 mmol/L (98-107) 01/22/23 13:20 Carbon Dioxide 23 mmol/L (22-29) 01/22/23 13:20 Anion Gap 14.6 (5-19) 01/22/23 13:20 BUN 8 mg/dL (6-20) 01/22/23 13:20 Creatinine 0.5 mg/dL (0.5-0.9) 01/22/23 13:20 GFR Calculation 134.0 mL/min (90-130) H 01/22/23 13:20 Glucose 139 mg/dL (65-115) H 01/22/23 13:20 Calculated Osmolality 279 mOsm/kg (285-295) L 01/22/23 13:20 Calcium 9.0 mg/dL (8.5-10.5) 01/22/23 13:20 Total Bilirubin 0.3 mg/dL (0.15-1.2) 01/22/23 13:20 AST 18 U/L (0-32) 01/22/23 13:20 ALT 13 U/L (0-33) 01/22/23 13:20 Alkaline Phosphatase 58 U/L (35-105) 01/22/23 13:20 Troponin T Baseline < 6 ng/L (0-10) 01/22/23 13:20 C-Reactive Protein 3.0 mg/L (0.0-4.9) 01/22/23 13:20 Total Protein 7.0 g/dL (6.6-8.7) 01/22/23 13:20 Albumin 4.1 g/dL (3.5-5.2) 01/22/23 13:20 Globulin 2.9 g/dL (1.3-4.6) 01/22/23 13:20 All radiology interpretation(s) finalized by discharge Discharge Plan Discharge Patient Disposition: Home Clinical Impression: Sarcoidosis, Atypical chest pain Condition: Stable Prescriptions: New prednisone 20 mg tablet 20 mg PO TID Qty: 30 0RF Rx Instructions: 1 p.o. 3 times daily x3 days, 1 p.o. twice daily x2 days, 1 p.o. daily x 16 days No Action albuterol sulfate 90 mcg/actuation HFA aerosol inhaler 2 puff inhalation Q6H PRN (Reason: shortness of breath or wheezing) Qty: 8.5 0RF albuterol sulfate 2.5 mg /3 mL (0.083 %) solution for nebulization 2.5 mg inhalation Q6H PRN (Reason: Wheezing) acetaminophen [Tylenol Arthritis] 650 mg Tablet Extended Release 650 mg PO Q12H PRN (Reason: Pain) ibuprofen [Advil] 200 mg Tablet 400 mg PO Q6H PRN (Reason: Pain) Discharge Orders: Discharge ED (Routine); Ordered 01/22/23 Ordered By: Robbie Taylor Referrals: Isabel Oliver MD [Primary Care Provider] - Discharge Diet: Usual diet Discharge Activity: Increase activity as tolerated Patient Instructions: Opioid Safety, Pain Management Activity Restrictions/Additional Instructions: Thank you for choosing [facility] for your healthcare needs today. Please realize this is an emergency room and that we are providing you with a medical screening exam and this may not be complete and all inclusive of all the testing and or work up that you may need to determine your ailment or severity of your illness. It is very important that you follow up as instructed or that you return to the Emergency Department should you have concerns or if your condition changes or worsens in any way. You were seen today with an atypical chest pain EKG and cardiac enzymes are negative. Given your history of sarcoid recommend prednisone burst and taper. This will last for 21 days as written today however you should taper off further would recommend that you see either Dr. Oliver or Dr. Dixon near the end of the course of steroids that you were given today and they can fashion a taper from the 20 mg daily. This is very important recommend that you call their offices today to make arrangements for follow-up. Coding Level of Care Code ED Horseback Excavator for Fredrick Gonsalez
[2023-01-22 13:27] VITALS: BP 156/91; PULSE 78; RESP 18; TEMP 36.8; O2SAT 99; BMI 25.2
[2023-01-22 13:34] VITALS: BP 104/63; PULSE 78; RESP 18; O2SAT 97
[2023-01-22 13:34] LABS: Basophils % 0.4 %; Eosinophils # 0.2 10^3/uL (0.0-0.8); Eosinophils % 2.7 %; Hematocrit 36.8 % (36-47); Lymphocytes # 1.2 10^3/uL (0.8-4.8); Lymphocytes % 14.7 %; Mean Corpuscular HGB Conc 33.4 g/dL (30-55); Mean Corpuscular Hemoglobin 30.5 pg (27-33); Mean Corpuscular Volume 91.3 fl (85-98); Mean Platelet Volume 9.7 fL (7.4-10.4); Monocytes # 0.4 10^3/uL (0.2-0.9); Monocytes % 5.5 %; Neutrophils # 5.98 10^3/uL (1.8-7.7); Neutrophils % 76.4 %; Nucleated Red Blood Cells % 0 %; Platelet Count 309 10^3/cmm (157-399); Red Blood Count 4.03 10^6/uL (3.85-5.65); Red Cell Distribution Width 11.4 % (12.1-15.1); White Blood Count 7.82 10^3/uL (3.29-11.43)
[2023-01-22 13:47] LABS: Alanine Aminotransferase 13 U/L (0-33); Albumin Level 4.1 g/dL (3.5-5.2); Alkaline Phosphatase 58 U/L (35-105); Blood Urea Nitrogen 8 mg/dL (6-20); Carbon Dioxide 23 mmol/L (22-29); Chloride 100 mmol/L (98-107); Creatinine Clr Calc Pharmacy 124.8897; Globulin 2.9 g/dL (1.3-4.6); Glucose 139 mg/dL (65-115); Osmolality Calculated 279 mOsm/kg (285-295); Sodium 134 mmol/L (136-145); Total Bilirubin 0.3 mg/dL (0.15-1.2)
[2023-01-22 13:49] LABS: Troponin(5th) Baseline < 6 ng/L (0-10)
[2023-01-22 13:53] LABS: Anion Gap 14.6 (5-19); Aspartate Amino Transferase 18 U/L (0-32); Potassium 3.6 mmol/L (3.5-5.1)
[2023-01-22 14:08] LABS: Erythrocyte Sedimentation Rate 13 mm/hr (0-15)
[2023-01-22 15:46] LABS: Adenovirus Not Detected (NOT DETECT); Chlamydia Pneumoniae Not Detected (NOT DETECT); Coronavirus 229E,HKU1,NL63,OC4 Not Detected (NOT DETECT); Human Metapneumovirus Not Detected (NOT DETECT); Human Rhinovirus/Enterovirus Not Detected (NOT DETECT); Influenza A Not Detected (NOT DETECT); Influenza A H1 Not Detected (NOT DETECT); Influenza A H1-2009 Not Detected (NOT DETECT); Influenza A H3 Not Detected (NOT DETECT); Influenza B Not Detected (NOT DETECT); Mycoplasma Pneumoniae Not Detected (NOT DETECT); Parainfluenza Virus Type 1 Not Detected (NOT DETECT); Parainfluenza Virus Type 2 Not Detected (NOT DETECT); Parainfluenza Virus Type 3 Not Detected (NOT DETECT); Parainfluenza Virus Type 4 Not Detected (NOT DETECT); Respiratory Syncytial Virus A Not Detected (NOT DETECT); Respiratory Syncytial Virus B Not Detected (NOT DETECT); SARS-COV-2 Not Detected (NOT DETECT)
== END 2023-01-22 15:12 | disposition home or self-care (01) ==
PROVIDERS: Emergency Provider Family Medicine; PCP Family Medicine
DX: D86.9 Sarcoidosis, unspecified (principal); R07.89 Other chest pain; Z11.52 Encounter for screening for COVID-19
CPT/HCPCS: 71045; 80053; 84484; 85025; 85651; 86140; 87635; 93005; 99285

== ENCOUNTER → 2023-02-26 14:30 | Outpatient (BNVA) | payer OTHER, SELFPAY | PROVIDERS: PCP Family Medicine; Referring Provider Family Medicine; Visit Provider Student in an Organized Health Care Education/Training Program | DX: M75.41 Impingement syndrome of right shoulder; S46.911D Strain of unspecified muscle, fascia and tendon at shoulder and upper arm level, right arm, subsequent encounter; X58.XXXD Exposure to other specified factors, subsequent encounter | CPT/HCPCS: 73030 ==

== ENCOUNTER → 2023-04-11 16:10 | Outpatient (BNVA) | payer OTHER, BC, SELFPAY | PROVIDERS: PCP Family Medicine; Visit Provider Family Medicine | DX: R42 Dizziness and giddiness (principal); R25.2 Cramp and spasm | CPT/HCPCS: 80048; 83735; 84443; 85025 ==

== ENCOUNTER → 2023-05-13 10:38 | Outpatient (BNVA) | payer BC, SELFPAY | PROVIDERS: PCP Family Medicine; Visit Provider Family Medicine | DX: R10.9 Unspecified abdominal pain (principal) | CPT/HCPCS: 81000 ==

== ENCOUNTER 2023-07-24 05:52 | Day surgery (SDC) | payer OTHER, SELFPAY ==
[2023-07-24] VITALS (12 sets, daily range): BP systolic 106–153; BP diastolic 66–83; PULSE 76–101; RESP 17–25; TEMP 36.1–36.3; O2SAT 92–97; BMI 25.6
[2023-07-24] MEDS: scopolamine 1.5 Patch 1 PATCH TRANSDERMA (06:22)
[2023-07-24] MEDS: ketorolac 30 mg/mL INJ IVP (06:23)
[2023-07-24] MEDS: acetaminophen 1,000 MG/100 ML PIGGYBACK 400 MG IV (06:24)
[2023-07-24] MEDS: sodium chloride 0.9% 1,000 ML 30 ML IV (06:24)
[2023-07-24] MEDS: midazolam 1 mg/mL INJ 2 mL 2 MG IVP (06:42)
--- NOTE | 2023-07-24 06:56 | SUR.PREOP ---
Timeout was performed at bedside for Dr Wise to do a nerve block. Patient tolerated well.
--- NOTE | 2023-07-24 06:57 | W.PM.OPSFHP ---
Same Day Surgery H&P Indication for Procedure/HPI DATE OF PROCEDURE: July 24, 2023 CHIEF COMPLAINT/INDICATIONFOR SURGICAL PROCEDURE: Right shoulder AC joint arthritis, subacromial impingement, partial rotator cuff tear PREOP DIAGNOSIS: Right shoulder AC joint arthritis, subacromial impingement, partial rotator PLANNED PROCEDURE: Operation Date: 07/24/23 07:00 Proposed Procedures p Shoulder Arthroscopy(Right) - Fabio Fernandez DO s Subacromial Decompression(Right) - Fabio Fernandez DO s AC Joint Resection(Right) - Fabio Fernandez DO s Rotator Cuff Repair - Arthroscopy/debridement versus repair.(Right) - Fabio Fernandez DO Medications/Allergies* Home Medications Medication Instructions Recorded Confirmed Type acetaminophen 650 mg 650 mg PO Q12H PRN Pain 11/29/22 07/23/23 History tablet,extended release albuterol sulfate 2.5 mg/3 mL 2.5 mg inhalation Q6H PRN Wheezing 11/29/22 07/23/23 History (0.083 %) solution for nebulization ibuprofen 200 mg tablet (Advil) 400 mg PO Q6H PRN Pain 11/29/22 07/23/23 History Allergies/Adverse Reactions Allergy/AdvReac Type Severity Reaction Status Date / Time promethazine [From Phenergan] Allergy Intermediate ALGY-Hives Verified 07/24/23 06:10 Current Medications: Generic Name Dose Route Start Last Admin Trade Name Freq PRN Reason Stop Dose Admin Sodium Chloride 1,000 mls @ 30 mls/hr 07/24/23 06:15 07/24/23 06:24 Sodium Chloride 0.9% IV 07/25/23 06:14 30 mls/hr .Q24H NATALIA Administration Midazolam HCl 2 mg 07/24/23 06:01 07/24/23 06:42 Midazolam 1 Mg/Ml Inj 2 Ml IVP 2 mg ONCE PRN Administration Preop Anxiety Pertinent History/Comorbid Conditions* Medical History (Updated 06/08/23 @ 11:06 by Fabio Fenrandez DO) Right shoulder strain Cervical stenosis of spinal canal Lung nodule Surgical History (Updated 08/03/22 @ 15:34 by Isabel Oliver MD) Status post myringotomy with insertion of tube History of bronchoscopy History of hysterectomy still has both ovaries History of appendectomy Family History (Updated 12/04/21 @ 10:43 by Rosalee Bazan LPN) Father Diabetes Mother Father Heart disease Mother Hypercholesteremia Father Breast cancer Mother Cancer Mother lung cancer Father esophageal Hypertension Father Stroke Father Asthma Father Social History Smoking and tobacco/nicotine status: never used tobacco/nicotine Alcohol intake: never Substance/Drug Use: never Lives independently: Yes Household members: spouse and children Marital status: Number of children: 3 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 Do you think of yourself as: Straight/Heterosexual Myrtle/Evangelical: Apostolic Pertinent Exam Findings alert, oriented x 3, operative site marked and procedure specific exam findings Refer to previous orthopedic exam on 05/28/2023 detailed below: Right shoulder Exam: -ROM Active 100 degrees -Passive 180 degrees with significant pain -Positive Hawkin'sPositive Speed's Positive [place]'s TTP over bicepital groove and AC joint Mild lateral TTP Recommendations Surgery/Procedure today Other Plans: Plan to proceed to the OR today for right shoulder diagnostic and surgical arthroscopy with subacromial decompression AC joint resection and rotator cuff debridement versus repair. Patient understands and Zetts procedure risk benefits complication alternatives of surgery through shared decision make elects proceed with surgical intervention. All questions answered. Coding Level of Care Code Acute Code for Sudarshang Fwbrody
[2023-07-24] MEDS: ceFAZolin 2,000 MG in sodium chloride 0.9% (plus) 50 ML 100 MG IV (07:06)
--- NOTE | 2023-07-24 07:48 | P.ANESASSM_ITS ---
Pre-Anesthetic Assessment Height/Weight: Height 1.57 m Weight 63.503 kg Temp Pulse Resp BP Pulse Ox O2 Del Method 97.2 F L 76 17 112/75 97 Room Air 07/24/23 06:11 07/24/23 06:11 07/24/23 06:11 07/24/23 06:11 07/24/23 06:11 07/24/23 06:14 Preop Diagnosis: Right shoulder AC joint arthritis, subacromial impingement, partial rotator Operation Date: 07/24/23 07:00 Proposed Procedures p Shoulder Arthroscopy(Right) - Fabio Twiggs, DO s Subacromial Decompression(Right) - Fabio Jim, DO s AC Joint Resection(Right) - Fabio Twiggs, DO s Rotator Cuff Repair - Arthroscopy/debridement versus repair.(Right) - Fabio Jim, DO Familial anesthetic complications: none Was Beta Percy taken within 24 hours: N/A Was Clonidine taken within 24 hours: N/A Last intake: Intake Last Liquid Date 07/23/23 Last Liquid Time 22:00 Last Solid Date 07/23/23 Last Solid Time 18:00 Social No alcohol and No tobacco Exam alert, oriented x 3, clear to auscultation bilaterally and regular rate & rhythm Airway Submandibular: within normal limits Cervical ROM: within normal limits Mallampati: Class II Dentition: full Musc/skel Osteoarthritis/DJD Sarcoidosis, steroids Anesthetic Plan ASA status: 2 Anesthesia: General and Regional (specify below) (Right interscalene blk) Medications/Allergies Home Medications Medication Instructions Recorded Confirmed Last Taken Type albuterol sulfate 90 mcg/actuation 2 puff inhalation Q6H PRN 09/25/22 07/23/23 Unknown Rx aerosol inhaler shortness of breath or wheezing #8.5 grams acetaminophen 650 mg 650 mg PO Q12H PRN Pain 11/29/22 07/23/23 Unknown History tablet,extended release albuterol sulfate 2.5 mg/3 mL 2.5 mg inhalation Q6H PRN Wheezing 11/29/22 07/23/23 Unknown History (0.083 %) solution for nebulization ibuprofen 200 mg tablet (Advil) 400 mg PO Q6H PRN Pain 11/29/22 07/23/23 Unknown History meclizine 12.5 mg tablet 12.5 mg PO TID PRN dizziness #30 04/12/23 07/23/23 Unknown Rx tabs prednisone 20 mg tablet 20 mg PO DAILY #5 tabs 05/13/23 07/23/23 Unknown Rx hydrocodone 5 mg-acetaminophen 325 1 tab PO Q6H PRN pain 5 days #20 07/24/23 Unknown Rx mg tablet tabs ondansetron 4 mg disintegrating 4 mg PO Q8H PRN nausea and 07/24/23 Unknown Rx tablet vomiting 3 days #9 tabs Allergies Allergy/AdvReac Type Severity Reaction Status Date / Time promethazine [From Phenergan] Allergy Intermediate ALGY-Hives Verified 07/24/23 06:10 Current Medications Generic Name Dose Route Start Last Admin Trade Name Freq PRN Reason Stop Dose Admin Sodium Chloride 1,000 mls @ 30 mls/hr 07/24/23 06:15 07/24/23 06:24 Sodium Chloride 0.9% IV 07/25/23 06:14 30 mls/hr .Q24H NATALIA Administration Midazolam HCl 2 mg 07/24/23 06:01 07/24/23 06:42 Midazolam 1 Mg/Ml Inj 2 Ml IVP 2 mg ONCE PRN Administration Preop Anxiety PFSH Anesthesia Medical History Right shoulder strain Cervical stenosis of spinal canal Lung nodule Surgical History Status post myringotomy with insertion of tube History of bronchoscopy History of hysterectomy still has both ovaries History of appendectomy Family History Mother Heart disease Diabetes Breast cancer Cancer lung cancer Father Stroke Hypertension Hypercholesteremia Diabetes Asthma Cancer esophageal Social History Smoking and tobacco/nicotine status: never used tobacco/nicotine Alcohol intake: never Substance/Drug Use: never Lives independently: Yes Household members: spouse and children Marital status: Number of children: 3 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 Do you think of yourself as: Straight/Heterosexual Myrtle/Congregational: Apostolic Female Reproductive History Spontaneous abortions: No Data Anesthesia Cardiac Studies: Echocardiogram 10/17/22 Anesthesia Procedures Nerve Block Nerve Block 1: Main Anesthesia: general anesthesia Time Out Performed: Yes Consent: requested by attending/covering physician, from patient, risks and benefits reviewed and patient agrees to proceed Nerve block location: interscalene (right) Anesthesia monitors applied: pulse oximetry, EKG, BP cuff and oxygen Nerve block position: semi sitting Anesthetic Used: ropivicaine 0.5% Amount of anesthesia used (mL): 30 Ultrasound used to: recognize landmarks and visualize and ID brachial plexus Nerve Stimulator Used?: No Interscalene/Femoral BLK: 2 stimuplex 22 g needle used for position and inplane approach Injection: neg aspiration of heme Patient Tolerated Procedure: well Complications: none
[2023-07-24] MEDS: EPINEPHrine 1 mg/mL INJ 2 MG XX (07:50)
--- NOTE | 2023-07-24 08:55 | P.BOP_ITS ---
Date of Procedure: [07/24/2023] Surgeon: Fabio Fernandez DO Skilled Nursing Case Manager(s): Dangelo Fernandez PA-C Procedure(s) performed: Right shoulder diagnostic and surgical arthroscopy with biceps tenodesis Right shoulder diagnostic and surgical arthroscopy with subscapularis tendon rotator cuff repair Right shoulder diagnostic and surgical arthroscopy with subacromial decompression(bursectomy and acromioplasty) Right shoulder diagnostic and surgical arthroscopy with AC joint resection (distal clavicle excision) Right shoulder diagnostic and surgical arthroscopy with supraspinatus tendon rotator cuff debridement Findings of the procedure(s): [Patient was found to have inflammation along the bicep tendon with tearing as well as a SLAP tear with an unstable biceps anchor underwent biceps tenodesis as well as found to have an upper border subscapularis tendon tear underwent repair of this as well. The rest of the procedure went as planned without issues or complications.] Estimated blood loss: [5 mL] Specimen(s) removed: None Post-operative diagnosis: Right shoulder SLAP tear with unstable biceps anchor and biceps tendon tearing, subscapularis tendon tear, subacromial impingement, AC joint arthritis, supraspinatus tendon bursal sided tear
--- NOTE | 2023-07-24 08:58 | P.OP_ITS ---
Operative Report Date of procedure: July 24, 2023 Surgeon: Fabio Fernandez DO Tax Adjuster: Dangelo Fernandez PA-C: PA was necessary for assistance in this case with shoulder positioning to execute the procedure, assistance with instrumentation, as well as implant fixation when necessary, assist with wound closure and dressing application. Procedure: Preoperative diagnosis: Right shoulder rotator cuff impingement, AC joint arthritis, partial rotator cuff tear Post-op?diagnosis: Right?shoulder superior?labral tear Right?shoulder?biceps tendon tear Right?shoulder?subscapularis rotator cuff tear and partial supraspinatus rotator cuff tear Right?shoulder?AC joint arthritis Right?shoulder?subacromial bursitis/impingement Procedure done: Right?shoulder?diagnostic and surgical arthroscopy with arthroscopic rotator cuff repair subscapularis tendon Right?shoulder?diagnostic and surgical arthroscopy biceps tenodesis Right?shoulder?diagnostic and surgical arthroscopy acromioclavicular joint resection Right?shoulder?diagnostic and surgical arthroscopy subacromial decompression (acromioplasty and bursectomy) Right shoulder diagnostic and surgical arthroscopy with rotator cuff debridement of supraspinatus tendon Surgeon: Fabio Fernandez DO Estimated blood loss: 5mL IV fluids: See anesthesia record Implants: Arthrex bicep tenodesis loop and tack Arthrex 4.75 swivel lock Arthrex scorpion and suture tape Complications: None Condition: stable Disposition: same day Brief History: Patient been seen and worked up in the outpatient setting for right?shoulder?pa in.? Pt had an MRI which showed findings below.? Patient's failed conservative treatment and has weakness.? We talked about treatment?options far as nonoperative and?operative intervention..? We talked about risk benefits complication alternatives surgical nonsurgical treatment?options.? Understanding risk of surgery pt agrees to proceed with surgical intervention.? All questions have been answered at this time.? Patient elects proceed with surgery and consent obtained in office. MR/MR shoulder RT wo con* [id number] IMPRESSION: 1. Degenerative arthritis AC joint with subacromial fluid with subacromial spurring and slight impingement on the distal supraspinatus. 2. Small intrasubstance bursal surface tear distal supraspinatus. 3. Rotator cuff is otherwise intact. 4. Normal biceps tendon in the bicipital groove. 5. No other acute findings. Procedure: Patient seen evaluated in the preoperative holding area.? Consent reviewed and signed with patient.? Once again reviewed patient's MRI results as well as? planned surgical intervention.? Correct extremity marked.? Patient seen evaluated by anesthesia department received regional anesthesia.? Once ready for surgery was taken back to the?operative suite.? Patient then subsequently underwent anesthesia per the anesthesia department was transported onto the OR table.? Patient was then placed into a lateral decubitus position with a beanbag and was appropriately secured to the bed.? All bony prominences well-padded.? Patient then had the right upper extremity was then prepped and draped in standard orthopedic fashion.? Patient received appropriate preoperative antibiotics.? Final timeout performed. The right upper extremity was then held in hanging from traction utilizing s terile technique.? Next started with standard diagnostic and surgical arthroscopy with posterior portal position introduced arthroscope into the glenohumeral joint.? Visualized the glenohumeral joint I then introduced a spinal needle within the rotator cuff interval to confirm appropriate anterior portal placement.? Once this was confirmed I then made my small incision and then introduced my arthroscopic shaver into the glenohumeral joint.? After flushing the joint fluid, was clearly evident patient had biceps tendon tearing as well as Superior labral tear. Patient had appreciable unstable biceps anchor most pronounced in the superior labrum. Given there appears to be healthy intra-articular tendon plan was for an intra-articular biceps tenodesis at the superior portion as it enters the intertubercular groove. Thermal wand introduced into the rotator interval. I then release of the rotator interval to have appropriate visualization and the ability to perform biceps tenodesis. At this point I established a purple passport cannula which was introduced. Next I performed an Arthrex loop and tap biceps tenodesis. Passer was then made around the tendon luggage tag stitch around and then thru the tendon and around twice I then utilized a thermal wand to release the biceps tendon at the anchor to perform with tenotomy. Patient was found to have an upper third of border tear of the subscapularis tendon and elected for a repair of the subscapularis tendon. I subsequently utilized a blunt probe to mobilize the tissue anteriorly and posteriorly around the subscapularis tendon to make sure suture passing would be only through the tendon. Once I satisfied with my releases I then subsequently loaded and Arthrex fiber link stitch through the scorpion this was then advanced and then luggage tag a purchase of the upper border of the subscapularis tendon as well as then an additional pass through with excellent purchase and fixation. I then loaded both sutures onto an Arthrex 4.75 swivel lock suture anchor. A punch was then placed in appropriate position at the entry point into the intertubercular groove just superior to the subscapularis tendon. Punch was then introduced to the appropriate depth. The suture loaded on the swivel lock was then advanced held under appropriate tension and shoulder lock anchor was then advanced and had excellent fixation. Excess suture was then cut, biceps tenodesis and subscapularis tendon repair was complete. I then utilized a thermal wand to seal the edges of the superior labrum. ? This point time I then visualized the glenohumeral joint.? The glenohumeral joint was found to have grade 1? chondromalacia throughout.? Infrapatellar pouch was free of loose bodies from viewing the posterior portal.? Next a visualized the rotator cuff superiorly and there was found to be a small undersurface tearing of the supraspinatus tendon.? This was subsequently debrided. This completed my work within the glenohumeral joint all fluid was suctioned free of the joint.? ?Next I reintroduced the arthroscope posteriorly.? And went to the subacromial space.? I established my lateral working portal at the site of which my spinal needle was marking of the rotator cuff tear.? Thermal wand was then introduced laterally and then I subsequently performed extensive bursectomy of the subacromial space.? Patient had a large anterior bone spur.? At this point time I proceeded with my AC joint resection thermal wand was used and track to the anterior edge of the acromion and then tracked all the way to the AC joint.? Once identified the AC joint this was very arthritic in nature.? Thermal wand was placed anteriorly to establish appropriate plane for AC joint resection.? Once appropriate margins and anterior inferior and anterior capsule was released I then introduced arthroscopic shaver and a bur and performed AC joint resection of both the acromion to cope plane at the AC joint and a distal clavicle resection was then performed totaling 1 cm in size and was confirmed.? This completed my AC joint resection and I then introduced the arthroscopic shaver laterally while continuing to view posteriorly.? I then performed an acromioplasty to complete my subacromial decompression. Next the arthroscopic shaver, then used to debride and perform an extensive bursectomy on top of the rotator cuff. There is only subtle fraying on the bursal side no complete or near complete tear was noted of the supraspinatus tendon this was taken through range of motion and was found to be intact I lightly debrided the bursal side just for stimulation of bleeding and healing as result no repair of the supraspinatus rotator cuff was performed. ?I then switched the arthroscope to the lateral and once again no evidence of rotator cuff tear was noted. ?Next I then introduced the arthroscopic shaver posteriorly to complete my subacromial decompression appropriate complaining all the way up to the lateral edge of the acromion.? This completed the surgery.? All fluid was suctioned from the?shoulder.? All instruments were removed.? The lateral incision was then closed with nylon stitches.? As well as the portal sites closed with portal nylon stitches.? Xeroform 4 x 4's ABD and tape was then applied to the right?shoulder?and was placed into a?shoulder?abduction pillow sling for rotator cuff repair.? Patient was then awakened from anesthesia and then taken back to PACU in stable condition.? Patient tolerated procedure without any issues. Disposition: Patient taken back in stable condition recovering well.? Dressings on in place clean dry and intact.? Will be nonweightbearing to the right upper extremity.? Follow rotator cuff repair protocol.? Patient to follow-up with me in the office in 2 weeks.? Patient will receive appropriate discharge instruction as well as pain medication postoperatively.? All questions answered.? We will contact the office for any questions or concerns.
--- NOTE | 2023-07-24 09:03 | PM.PACU ---
PACU note Narrative: Patient is a 43-year-old female just underwent a right shoulder arthroscopy. Patient transferred to PACU in stable condition. Pain is well controlled. shoulder Dressing on , dry and in place. Patient's operative arm is in a shoulder immobilizer. Patient is awake and alert and able to respond to my questions accordingly. Patient's fingers are warm with good perfusion. Normal cap refill under 2 seconds. Unable to assess further range of motion of arm due to sling. Unable to assess sensation due to residual localized anesthetic. Exam: awake Disposition: discharged
[2023-07-24] MEDS: metoclopramide 5 mg/mL SDV 2 mL 10 MG (09:14)
[2023-07-24] MEDS: meperidine 50 mg/mL INJ 12.5 MG IVP (09:21)
[2023-07-24] MEDS: ondansetron 2 mg/ML SDV 2 mL 4 MG IVP (09:41)
[2023-07-24] MEDS: HYDROcodone-acetaminophen 5-325 mg Tablet 1 TAB PO (10:14)
--- NOTE | 2023-07-24 10:30 | SUR.PHASEII ---
Patient is feeling nauseated, sleepy - resting in room, family at bedside.
--- NOTE | 2023-07-24 15:46 | ANE.PACU2 ---
Inpatient post-anesthesia follow up: Airway intact: Yes Vital signs: Temperature 97.1 F Pulse Rate 82 Respiratory Rate 17 Blood Pressure 118/69 Pulse Oximetry 95 Oxygen Delivery Me thod Room Air Oxygen Flow Rate Fraction of Inspir ed Oxygen Hydration adequate: Yes Nausea and vomiting: No Pain level: 1 Mental status: Baseline
== END 2023-07-24 11:50 | disposition home or self-care (01) ==
PROVIDERS: PCP Family Medicine; Visit Provider Student in an Organized Health Care Education/Training Program
PROC: (CPT 29805; principal; 2023-07-24 07:00)
PROC: (CPT 29826; 2023-07-24 07:00)
PROC: 0RSG0ZZ Reposition Right Acromioclavicular Joint, Open Approach (ICD-10-PCS; CPT 29824; 2023-07-24 07:00)
PROC: (CPT 29827; 2023-07-24 07:00)
PROC: (CPT 23430; 2023-07-24 07:00)
DX: S43.401A Unspecified sprain of right shoulder joint, initial encounter (principal); S46.111A Strain of muscle, fascia and tendon of long head of biceps, right arm, initial encounter; X58.XXXA Exposure to other specified factors, initial encounter; M75.101 Unspecified rotator cuff tear or rupture of right shoulder, not specified as traumatic; M19.011 Primary osteoarthritis, right shoulder; M25.811 Other specified joint disorders, right shoulder
CPT/HCPCS: 29824; 29826; 29827; 29828; C1713; J0131; J0171; J0690; J1100; J1885; J2175; J2250; J2371; J2405; J2704; J2710; J2765; J2795; J3010; J3490; J7030

== ENCOUNTER → 2024-03-05 13:10 | Outpatient (BNVA) | payer OTHER, SELFPAY | PROVIDERS: PCP Family Medicine; Visit Provider Physician Assistant | DX: Z98.890 Other specified postprocedural states (principal); M75.41 Impingement syndrome of right shoulder | CPT/HCPCS: 73030 ==

== ENCOUNTER 2024-10-06 08:52 | Outpatient (CLI) | payer OTHER, SELFPAY ==
--- NOTE | 2024-10-06 08:59 | MM_ITS ---
WS: [id number] BILATERAL DIAGNOSTIC DIGITAL TOMOSYNTHESIS MAMMOGRAM WITH CAD LEFT breast ultrasound, limited. HISTORY: L BREAST LUMP COMPARISON: 12/28/2021, 06/18/2019 Bilateral CC, ML and MLO views with tomosynthesis and synthetic mammography submitted. Spot compression LEFT CC and MLO. Computer aided detection analyzed. Breast composition: The breasts are extremely dense, which lowers the sensitivity of mammography. Partially obscured mass is reidentified in the central LEFT breast. This corresponds to the palpable abnormality. Margins of this mass are obscured and difficult to identify. Mass measures approximately 4. 1 x 3.3 cm. Benign calcifications in each breast. LEFT breast ultrasound, limited. Palpable area in the LEFT breast at 12:00 corresponds to an ovoid cyst measuring 1.7 x 1.0 x 1.5 cm which has been previously described. No increased vascularity or solid component. There are a few adjacent smaller cysts. MM/MM diag BI tomosynthesis [id number] IMPRESSION: BI-RADS: 2 - Benign FOLLOW UP: 1 Year Follow-up Palpable abnormality corresponds to a large cyst. This has been previously desc ribed. Breast parenchyma is very dense. Yearly mammography strongly encouraged.
== END 2024-10-06 08:53 | disposition home or self-care (01) ==
LOC: RAD 08:54
PROVIDERS: PCP Family Medicine; Visit Provider Advanced Practice Midwife
DX: N63.25 Unspecified lump in the left breast, overlapping quadrants (principal); R92.343 Mammographic extreme density, bilateral breasts; R92.1 Mammographic calcification found on diagnostic imaging of breast; R92.8 Other abnormal and inconclusive findings on diagnostic imaging of breast
CPT/HCPCS: 76642; 77062; G0279